=== PATIENT | female | born 1945 | race Caucasian/White ===

== ENCOUNTER 2018-01-06 14:45 | Emergency (ER) | payer MEDICARE, SELFPAY ==
[2018-01-06 14:47] VITALS: BP 159/83; PULSE 59; RESP 12; TEMP 36.6; O2SAT 96; BMI 35.4
--- NOTE | 2018-01-06 15:18 | RAD_ITS ---
STUDY: X-RAY - LEFT HUMERUS REASON FOR EXAM: Female, 72 years old. Left-sided arm pain after fall. TECHNIQUE: 2 view(s) of the humerus. COMPARISON: None. FINDINGS: There is diffuse demineralization of the humerus. There is no demonstrated fracture or osseous destructive process. There appears to be decreased acromiohumeral distance suggesting possible sequela of chronic rotator cuff tear. There is no demonstrated soft tissue abnormality. RAD/Humerus min 2 Views IMPRESSION: No radiographic evidence for acute fracture. Electronically Signed: Nuria Montgomery MD at 16:35 EDT , Service support ,
--- NOTE | 2018-01-06 15:18 | RAD_ITS ---
STUDY: X-RAY - LEFT WRIST REASON FOR EXAM: Female, 72 years old. Wrist fracture after fall. TECHNIQUE: 3 view(s) of the wrist were obtained. COMPARISON: Prior comparison studies are not available for review at this time. FINDINGS: There is a comminuted impacted intra-articular fracture the distal radius. The fracture extends into the radiocarpal joint. Fracture extends into the distal radioulnar joint and there is an ulnar plus variant. There is demineralization of the carpal bones. There is a geographic lucency within the scaphoid and lunate that may represent small cysts. Normal carpal articulations. There is degenerative arthrosis of the carpometacarpal articulation of the thumb. Normal second through fifth carpometacarpal articulations. There is deformity of the fifth metacarpal suggesting sequela old fracture. There is soft tissue swelling. RAD/Wrist min 3 Views IMPRESSION: Comminuted impacted intra-articular Colles' fracture of the distal radius. Electronically Signed: Nuria Montgomery MD at 16:32 EDT , Service support ,
--- NOTE | 2018-01-06 15:18 | CT_ITS ---
STUDY: CT FACIAL BONES WITHOUT CONTRAST REASON FOR EXAM: Female, 72 years old. Contusion of the left side of the face. RADIATION DOSAGE (If Supplied By Facility): CTDIvol = ( 29.38 ) mGy, DLP = ( 650.30 ) mGycm TECHNIQUE: The patient was scanned in a multi detector CT scanner. Sagittal and coronal images were reconstructed. Individualized dose optimization techniques were used for this CT. COMPARISON: None. FINDINGS: Normal soft tissue structures. Normal orbital carrington and orbital contents. Normal nasal bones and anterior nasal spine. Mandible has a normal appearance. There are degenerative changes at the temporomandibular joints with joint space narrowing and osteophyte formation. The carrington of the frontal sinuses, carrington of the maxillary sinuses, pterygoid plates and zygomatic arches are within normal limits. There is no demonstrated fracture. Appears be small amount of fluid in the right maxillary sinus. Paranasal sinuses are otherwise clear. CT/Sinus/Facial Bone IMPRESSION: No CT evidence of acute displaced fracture Electronically Signed: Nuria Montgomery MD at 17:09 EDT , Service support ,
--- NOTE | 2018-01-06 15:18 | CT_ITS ---
STUDY: CT BRAIN WITHOUT CONTRAST REASON FOR EXAM: Female, 72 years old. Recent fall. No loss of consciousness. RADIATION DOSAGE (If Supplied By Facility): CTDIvol = ( 44.99 ) mGy, DLP = ( 779.24 ) mGycm TECHNIQUE: Transaxial CT imaging of the brain was performed without administration of intravenous contrast material. Multiplanar reformations are submitted for interpretation. Individualized dose optimization techniques were used for this CT. COMPARISON: Prior comparable comparison studies are not available for review at this time. FINDINGS: Normal soft tissue structures. Normal calvarium. There is mild cerebral atrophy with widening of the extra-axial spaces and ventricular dilatation. Normal white matter tracts of the cerebral hemispheres. There are small calcifications of the basal ganglia which are seen in the aging brain as a normal variant. Normal brainstem. Normal cerebellum. There is no intracranial hemorrhage. There are no findings of an acute ischemic infarction. Normal visualized paranasal sinuses. CT/Brain/Head without Contrast IMPRESSION: 1. Chronic involutional changes of the brain. 2. No CT evidence of acute intracranial hemorrhage. Electronically Signed: Nuria Montgomery MD at 17:01 EDT , Service support ,
--- NOTE | 2018-01-06 15:18 | RAD_ITS ---
STUDY: X-RAY - RIGHT ANKLE REASON FOR EXAM: Female, 72 years old. Right-sided ankle pain after fall. TECHNIQUE: 3 view(s) of the ankle. COMPARISON: None. FINDINGS: Normal visualized distal tibia and fibula. Normal medial and lateral malleoli. Normal tibiotalar articulation and ankle mortise. There is a small plantar calcaneal spur. Joint spaces are within normal limits. There is no demonstrated fracture. The soft tissues are within normal limits. RAD/Ankle min 3 Views IMPRESSION: 1. Calcaneal spur. 2. No radiographic evidence of acute fracture. If there is still clinical concern for acute fracture, follow-up radiographs in 7-10 days maybe helpful in evaluating a healing radiographically occult fracture. Electronically Signed: Nuria Montgomery MD at 16:06 EDT , Service support ,
--- NOTE | 2018-01-06 15:20 | RAD_ITS ---
STUDY: X-RAY CHEST REASON FOR EXAM: Female, 72 years old. Chest pain after fall. TECHNIQUE: PA and lateral views of the chest. COMPARISON: None. FINDINGS: The lungs are clear and expanded. There is mild eventration of right hemidiaphragm. There is no demonstrated pleural abnormality. Normal size heart. Normal mediastinum and domonique. Normal visualized pulmonary arteries. Normal visualized aortic arch and descending thoracic aorta. There is demineralization of the osseous structures. Normal visualized ribs, clavicles, and shoulders. There is no demonstrated abnormality of the visualized soft tissue structures of the upper abdomen. RAD/Chest PA and Lateral IMPRESSION: No radiographic evidence of acute cardiopulmonary disease. Electronically Signed: Nuria Montgomery MD at 16:11 EDT , Service support ,
[2018-01-06] MEDS: morphine 8 MG/ML Syringe 6 MG IV (15:27)
[2018-01-06] MEDS: Ondansetron 4 MG/2 ML Vial IV (15:27)
[2018-01-06 16:52] VITALS: BP 125/63; PULSE 60; RESP 16; O2SAT 97
--- NOTE | 2018-01-06 17:38 | ED.DCSUM_ITS ---
- ER Visit Summary Date of Service: 01/06/18 Chief Complaint: Fall complaining of left wrist pain History of Present Illness: The patient is a 72 F who was trimming a portion at home that was along the wall above her driveway. She misstepped and fell over the wall about 3 feet landing awkwardly on her left wrist. Denies any LOC. She did hit the left side of her head and face. She denies being on any blood thinners. She also complains of mild left rib cage pain and left shoulder discomfort. She is right-hand dominant. Physical Examination: Well-appearing older female. Vital signs are stable afebrile. She does not look septic toxic. H EENT exam superficial abrasion contusion left side of her face. Pupils round reactive light. No dental injury. No scalp hematoma. C-spine nontender trachea midline. Normal range of motion her neck. Lungs clear to auscultation bilaterally. Chest wall nontender. Heart regular rate and rhythm no murmur. Abdomen soft nontender normal bowel sounds no peritoneal signs. Pelvic girdle intact. Back nontender. Extremities the right upper and right lower extremities are basically unremarkable. She complains of mild tenderness to her right ankle but there is no deformity. Foot is neurovascular intact. Left lower extremities unremarkable. Her left shoulder she complains of discomfort is no deformity. Elbow is nontender. The left wrist has an obvious deformity consistent with a fracture with a left hand neurovascular intact. There are superficial abrasions. Neurologic exam is normal. GCS is 15. Test Results: The brain shows no acute abnormality chronic changes. No bleed. Read by the radiologist reviewed by me. The facial bones no fracture again read by the radiologist reviewed by me. Chest x-ray unremarkable. Left humerus unremarkable. Left wrist distal radius comminuted displaced impacted fracture. Right ankle x-ray chronic changes with calcaneal spur but no fracture. Emergency Department Course and Treatment: Patient treated with IV morphine and Zofran. I did place a short arm AP splint to immobilize the left distal radius fracture. Patient tolerated procedure well. Treatment Plan: She will be followed up by orthopedics as an outpatient. I did speak to Dr. Iglesias about follow-up. Patient be discharged with 20 [place] for pain. Disposition: Discharge Impression: Acute fall over approximately a 3 4 wall. Closed head injury Left distal radius comminuted fracture Short arm AP splint by ER Right ankle sprain Left rib cage contusion This note was generated with [employer] dictation software. It may contain incorrect words, spelling, and punctuation that were not noted in review of the chart prior to signing ED Disposition - Plan for ED Patient: Chief Complaint: Fall Referrals: Hudson Oglesby Jr., MD [Primary Care Provider] -
--- NOTE | 2018-01-06 17:38 | ED.DEP ---
ED Disposition - Plan for ED Patient: Disposition: Home or Assisted Living Chief Complaint: Fall Instructions: ED Head Injury Closed, ED Fx Wrist General Prescriptions: Hydrocodone Bitart/Apap 5-325 [[place] 5MG-325MG] 1 - 2 tab PO Q4H PRN PRN #20 tab PRN Reason: Pain Additional Instructions: Ice and elevate left wrist. Keep splint dry and clean. Call and follow-up with of orthopedics on Monday. She will be to her office early next week. [place] for pain.
[2018-01-06 17:50] VITALS: BP 118/70; PULSE 80; RESP 14; O2SAT 99
== END 2018-01-06 18:07 | disposition home or self-care (01) ==
PROVIDERS: Emergency Provider Emergency Medicine; Family Provider Internal Medicine; PCP Internal Medicine
DX: S52.502A Unspecified fracture of the lower end of left radius, initial encounter for closed fracture (principal); S00.81XA Abrasion of other part of head, initial encounter; S00.83XA Contusion of other part of head, initial encounter; S93.401A Sprain of unspecified ligament of right ankle, initial encounter; S20.212A Contusion of left front wall of thorax, initial encounter; M25.512 Pain in left shoulder; R40.2410 Glasgow coma scale score 13-15, unspecified time; W17.89XA Other fall from one level to another, initial encounter; Y93.89 Activity, other specified; Y92.9 Unspecified place or not applicable; J44.9 Chronic obstructive pulmonary disease, unspecified; E11.9 Type 2 diabetes mellitus without complications; I10 Essential (primary) hypertension; Z90.710 Acquired absence of both cervix and uterus; Z79.84 Long term (current) use of oral hypoglycemic drugs; Z79.82 Long term (current) use of aspirin; Z79.899 Other long term (current) drug therapy
CPT/HCPCS: 29125; 70450; 70486; 71046; 73060; 73110; 73610; 96374; 96375; 99285; A4216; J2405

== ENCOUNTER → 2018-01-10 10:04 | Outpatient (CLI) | payer MEDICARE, SELFPAY ==
--- NOTE | 2018-01-10 10:31 | EKG12_ITS ---
Test Reason : PRE OP Blood Pressure : / mmHG Vent. Rate : 057 BPM Atrial Rate : 057 BPM P-R Int : 182 ms QRS Dur : 090 ms QT Int : 426 ms P-R-T Axes : 047 012 110 degrees QTc Int : 414 ms Sinus bradycardia Minimal voltage criteria for LVH, may be normal variant Nonspecific T wave abnormality Abnormal ECG When compared with ECG of 29-JUL-2013 15:18, Nonspecific T wave abnormality now evident in Inferior leads Nonspecific T wave abnormality now evident in Anterior leads Confirmed by KATHIA ROMERO ([id number]), editor city YURIY FISHER ([id number]) on 01/10/2018 11:42:56 AM Referred By: Anibal Garcia Confirmed By:KATHIA ROMERO
[2018-01-10 10:39] LABS: Hematocrit 40.7 % (37-47); Hemoglobin 13.1 g/dl (12.0-15.0); Mean Corp Hgb Conc 32.2 g/gl (32-36); Mean Corpuscular Hgb 28.6 pg (27.0-32.0); Mean Corpuscular Volume 88.9 fL (81-99); Mean Platelet Vol. 11.4 fl (6.2-12.0); Platelet Count 269 K/mm3 (150-450); RBC Distribution Width CV 13.4 % (11.6-14.6); RBC Distribution Width SD 43.2 fl (35.1-43.9); Red Blood Count 4.58 M/mm3 (4.2-5.4)
[2018-01-10 10:40] LABS: Scan Indicated on CBC? Y/N NO
[2018-01-10 10:58] LABS: Anion Gap 6 (5-15); BUN 17 mg/dL (7-18); BUN/Creat Ratio 20.7 RATIO (10-20); Calcium,Total 9.2 mg/dL (8.5-10.1); Chloride 104 mmol/L (98-107); Creatinine, Serum 0.82 mg/dL (0.55-1.02); EST Glomerular Filtration Rate 73 mL/min (>60); Est Glom Filt Rate - Afr Amer 88 mL/min (>60); Glucose 109 mg/dL (74-106); Potassium 4.1 mmol/L (3.5-5.1); Sodium Level 137 mmol/L (136-145)
== END ==
PROVIDERS: Family Provider Internal Medicine; PCP Internal Medicine; Visit Provider Physician Assistant Surgical
DX: Z01.818 Encounter for other preprocedural examination (principal); Z01.810 Encounter for preprocedural cardiovascular examination
CPT/HCPCS: 36415; 80048; 85027; 93005

== ENCOUNTER 2018-01-19 09:14 | Observation (INO) | payer MEDICARE, SELFPAY ==
[2018-01-19] VITALS (7 sets, daily range): BP systolic 109–150; BP diastolic 60–80; PULSE 60–76; RESP 14–18; TEMP 35.7–36.9; O2SAT 96–100; BMI 34.4; BMI 34.0; BMI 34.1
--- NOTE | 2018-01-19 09:29 | EKG12_ITS ---
Test Reason : GI BLEED Blood Pressure : / mmHG Vent. Rate : 062 BPM Atrial Rate : 062 BPM P-R Int : 170 ms QRS Dur : 090 ms QT Int : 442 ms P-R-T Axes : 044 010 152 degrees QTc Int : 448 ms Normal sinus rhythm T wave abnormality, consider anterolateral ischemia Abnormal ECG Confirmed by KATHIA ROMERO ([id number]), videotape editor YURIY FISHER ([id number]) on 01/29/2018 6:20:43 PM Referred By: Anibal Garcia Confirmed By:KATHIA ROMERO
--- NOTE | 2018-01-19 09:39 | ED.DCSUM_ITS ---
- ER Visit Summary Date of Service: 01/19/18 Chief Complaint: Severe abdominal pain yesterday and dark blood per rectum History of Present Illness: The patient is a 72 F who presents because of severe cramping generalized abdominal pain yesterday. She states the pain was associated with diaphoresis. She reports more she dark bloody stool. She has history of hemorrhoids and diverticulosis. She has not had a colonoscopy recently. She is on no anticoagulants or antiplatelet medicine. She does complain of lightheadedness today. She denies fever, chills night sweats. She denies chest pain or palpitations. She denies shortness of breath, cough, dyspnea on exertion. She reported nausea without vomiting. She denies dysuria, frequency, urgency or hematuria. She denies bruising easily or problems with bleeding. Physical Examination: Vital signs are normal. Head is atraumatic normocephalic. Pupils are equal round reactive. Extraocular muscles are intact. TMs are pearly white with landmarks noted. Nares patent with no drainage. Posterior pharynx without erythema or exudate. Uvula is midline. There is no dysphonia or dysphasia. Trachea is midline. There is no stridor with auscultation of the neck. Heart is regular without murmur, gallop or rub. S1 and S2 are normal. Lungs are clear to auscultation with good movement of air bilaterally. Abdomen is soft nontender slightly increased bowel sounds. Abdomen is not distended nor is there any tympana. Rectal exam is remarkable for hemorrhoids. Rectal exam was remarkable for dark blood/maroon colored material. Neuro exam is nonfocal. Test Results: EKG reveals a sinus rhythm rate of [address]-T wave changes. This is unremarkable. BMP revealed an elevated glucose of 130. BUN and creatinine are normal and BUN/creatinine ratio is normal. Coags are normal. Emergency Department Course and Treatment: Because patient elderly complains of orthostatic symptoms EKG was obtained. Blood work was obtained to evaluate her symptoms. Will perform endoscopy to determine if this is hemorrhoidal bleeding versus diverticular bleeding. Suspect the latter. Treatment Plan: Rigid sigmoidoscopy. Upon entering the rectum blood was noted. Blood was noted past 14 cm. In light of this finding suspect lower GI bleed secondary to diverticulosis. Disposition: Dr. Avila has been paged for surgical consultation and will page hospitalist for admission for evaluation of lower GI bleed. Presently patient is hemodynamically stable and her hemoglobin is normal. Patient to be admitted to hospitalist service with consultation to Dr. Eleazar Avila Impression: 1. Lower GI bleed with history of diverticulosis 2. History of type 2 diabetes 3. History of hypertension 4. History of hypercholesterolemia This note was generated with [employer] dictation software. It may contain incorrect words, spelling, and punctuation that were not noted in review of the chart prior to signing ED Disposition - Plan for ED Patient: Chief Complaint: GI Bleed Referrals: Hudson Oglesby Jr., MD [Primary Care Provider] -
[2018-01-19 09:56] LABS: Absolute Lymphocyte Count 2.17 X10^3/ul (0.83-4.51); Absolute Neutrophil Count 7.3 X10^3/uL (2.0-7.7); Basophil# 0.02 X10^3/uL; Basophil% 0.2 % (0-1); Eosinophil# 0.41 X10^3/uL; Eosinophils% 3.8 % (0-5); Hematocrit 40.8 % (37-47); Hemoglobin 13.3 g/dl (12.0-15.0); Lymphocyte # 2.17 X10^3/ul (4.0); Lymphocyte % 20.1 % (19-41); Mean Corp Hgb Conc 32.6 g/gl (32-36); Mean Corpuscular Hgb 28.1 pg (27.0-32.0); Mean Corpuscular Volume 86.1 fL (81-99); Mean Platelet Vol. 9.5 fl (6.2-12.0); Monocyte# 0.86 X10^3/uL; Neutrophil # 7.31 X10^3/uL (2.7-7.7); Neutrophil % 67.7 % (47-70); Platelet Count 300 K/mm3 (150-450); RBC Distribution Width CV 13.3 % (11.6-14.6); RBC Distribution Width SD 42.1 fl (35.1-43.9); Red Blood Count 4.74 M/mm3 (4.2-5.4); White Blood Count 10.8 K/mm3 (4.4-11.0)
[2018-01-19 10:00] LABS: POSITIVE COUNT NO; POSITIVE DIFFERENTIAL NO; POSITIVE MORPHOLOGY NO
[2018-01-19 10:06] LABS: Anion Gap 7 (5-15); BUN 12 mg/dL (7-18); BUN/Creat Ratio 13.3 RATIO (10-20); Calcium,Total 8.8 mg/dL (8.5-10.1); Chloride 105 mmol/L (98-107); EST Glomerular Filtration Rate 65 mL/min (>60); Est Glom Filt Rate - Afr Amer 79 mL/min (>60); Estimated Creatinine Clearance 49.51 ml/min; Glucose 130 mg/dL (74-106); Potassium 4.1 mmol/L (3.5-5.1); Sodium Level 138 mmol/L (136-145)
[2018-01-19 10:09] LABS: Partial Thromboplast Time 29.5 Seconds (24.1-36.2)
--- NOTE | 2018-01-19 10:34 | NURSING ---
DR SCHAEFER PAGED
--- NOTE | 2018-01-19 10:46 | NURSING ---
DR JUAN ROBLES
--- NOTE | 2018-01-19 10:46 | NURSING ---
MED SURG LOWER GI BLEED ROBLES/ JUAN
--- NOTE | 2018-01-19 11:23 | CON.PCM_ITS ---
Problem List (1) GI bleeding Status: Acute Qualifiers: GI bleed type/associated pathology: anorectal hemorrhage Qualified Code(s) : K62.5 - Hemorrhage of anus and rectum Reason for Consult Date of Consultation: 01/19/18 History of Present Illness: The patient is a 72 F who presents because of severe cramping generalized abdominal pain yesterday. She states the pain was associated with diaphoresis. She reports more she dark bloody stool. She has history of hemorrhoids and diverticulosis. She has not had a colonoscopy recently. She is on no anticoagulants or antiplatelet medicine. She does complain of lightheadedness today. She denies fever, chills night sweats. She denies chest pain or palpitations. She denies shortness of breath, cough, dyspnea on exertion. She reported nausea without vomiting. She denies dysuria, frequency, urgency or hematuria. She denies bruising easily or problems with bleeding. While in the emergency department she underwent a rigid sigmoidoscopy up to 14 cm. The only thing that was seen was bloody mucousy stool. She has had 2 colonoscopies in the past [address] Jason and then she thinks another one more recently done in [place] she presented with similar episodes of rectal bleeding. She was told that she has more likely diverticulosis which caused the bleeding back then. Past Medical History Allergies Penicillins [PCN] Allergy (Verified 01/19/18 09:18) Anaphylaxis Home Medications: Ambulatory Orders Medication Instructions Recorded ALPRAZolam [Xanax] 1 mg PO BID PRN 01/06/18 Amiodarone HCl [Amiodarone HCl] 200 mg PO DAILY 01/06/18 Amlodipine [Norvasc] 5 mg PO DAILY 01/06/18 Aspirin 81 mg PO DAILY 01/06/18 Metformin HCl [Glucophage] 500 mg PO BID 01/06/18 Metoprolol Succinate [Toprol Xl] 100 mg PO BID 01/06/18 Milnacipran HCl [Savella] 50 mg PO BID 01/06/18 Multivit-Min/FA/Vit K/Lycopene 1 each PO DAILY 01/19/18 [[facility] Mens 50 Plus Advanced Tab] Oxycodone [Oxyir] 5 - 10 mg PO Q6H PRN PRN 01/19/18 Surgical History: cholecystectomy, - - Patient has had colonoscopies in the past Smoking Status: Never smoker - *Family History Maternal History Items: No pertinent history Review of Systems Constitutional: Denies: Chills, Fever, Weight Change HEENT: Denies: Dysphasia, Ear Pain, Eye Pain, Head Aches, Hearing Changes, Sore Throat Cardiovascular: Denies: Chest Pain, Chest Pressure, Chest Tightness, Palpitations Respiratory: Denies: Cough, Hemoptysis, Shortness of breath at rest, Shortness of breath upon exertion, Wheezing Gastrointestinal: Reports: Abdominal Pain, Hematochezia - She is complaining of crampy abdominal pain and has had numerous mucousy bloody bowel movements over the night, Nausea. Denies: Vomiting Patient Problems: Active and Suspected Problems GI bleeding (Acute) - Physical Exam General: Alert, Oriented x3 Neck: Supple, No JVD Lungs: Clear to auscultation Cardiovascular: Regular rate, Regular Rhythm, No murmurs Abdomen: Bowel Sounds Present, Soft, Non Tender, Non-Distended Vital Signs Temp Pulse Resp BP Pulse Ox 96.2 F L 63 14 150/80 H 98 01/19/18 09:15 01/19/18 10:58 01/19/18 10:58 01/19/18 10:58 01/19/18 10:58 Assessment/Plan All Active Problems GI bleeding (Acute) My plan is to have her do a bowel prep today and then sometime hopefully early tomorrow do a colonoscopy on her. Risk benefits have been discussed in detail with the patient to include bleeding injury to the colon which could possibly require further surgery.
[2018-01-19 12:39] LABS: Hematocrit 39.2 % (37-47); Hemoglobin 12.8 g/dl (12.0-15.0)
--- NOTE | 2018-01-19 13:31 | PCM.HP.STD ---
Problem List (1) GI bleeding Status: Acute Qualifiers: GI bleed type/associated pathology: anorectal hemorrhage Qualified Code(s): K62.5 - Hemorrhage of anus and rectum (2) Diverticulosis Status: Chronic (3) HTN (hypertension) Status: Chronic (4) Diabetes Status: Chronic Qualifiers: Diabetes mellitus type: type 2 (5) HLD (hyperlipidemia) Status: Chronic (6) Anxiety Status: Chronic (7) Fibromyalgia Status: Chronic (8) Wrist fracture Status: Chronic (9) Depression Status: Chronic History of Present Illness Date of Admission: 01/19/18 Chief Complaint: BRBPR The patient is a 72 year old F with a hx of bleeding diverticulitis, DMt2, HTN, HLD, fibro, anx, dep, who presents to the ER with cc of BRBPR. She initially noted diffuse, severe, cramping abdominal pain yesterday afternoon. Today she had multiple small bowel movements each time with relief of the cramping before it restarted. During these she would experience the urge to defecate strongly, then bear down heavily with cramping, and become lightheaded, nauseous (no vomiting) and diaphoretic. After the 4th episode she began bleeding from her rectum. She felt like she was moving her bowels, but gobs of blood would come out, which were bright red and with mucous, that would sit in the bottom of the toilet in clumps. She denies fever or chills. In the ER she had a normal Hgb, and had a rigid sigmoidoscopy with blood and mucus through 14 cm. Currently she has some crampy pain radiating into the back. She has had bleeding in the past and was told it was from diverticulosis. She has had multiple colonoscopies, she believes the last was 3-4 years ago, she cannot specifically remember who did it, but thinks it was in [place]. [] Past Medical History Past Medical History (Chronic Problems): Chronic Problems Diverticulosis (Chronic) HTN (hypertension) (Chronic) Diabetes (Chronic) HLD (hyperlipidemia) (Chronic) Anxiety (Chronic) Fibromyalgia (Chronic) Wrist fracture (Chronic) Depression (Chronic) Allergies Penicillins [PCN] Allergy (Verified 01/19/18 09:18) Anaphylaxis Home Medications: Ambulatory Orders Medication Instructions Recorded ALPRAZolam [Xanax] 1 mg PO BID PRN 01/06/18 Amiodarone HCl [Amiodarone HCl] 200 mg PO DAILY 01/06/18 Amlodipine [Norvasc] 5 mg PO DAILY 01/06/18 Aspirin 81 mg PO DAILY 01/06/18 Metformin HCl [Glucophage] 500 mg PO BID 01/06/18 Metoprolol Succinate [Toprol Xl] 100 mg PO BID 01/06/18 Milnacipran HCl [Savella] 50 mg PO BID 01/06/18 Multivit-Min/FA/Vit K/Lycopene 1 each PO DAILY 01/19/18 [[facility] Mens 50 Plus Advanced Tab] Oxycodone [Oxyir] 5 - 10 mg PO Q6H PRN PRN 01/19/18 Surgical History: cholecystectomy, - - Patient has had colonoscopies in the past Psychiatric History: Anxiety, Depression 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 Review of Systems Constitutional: Denies: Chills, Fever, Weight Change HEENT: Denies: Head Aches, Sinus Congestion, Sinus Drainage Cardiovascular: Denies: Chest Pain, Palpitations Respiratory: Denies: Cough, Shortness of breath at rest, Sputum production Gastrointestinal: Reports: Abdominal Pain, Hematochezia, Nausea. Denies: Vomiting Genitourinary: Denies: Dysuria Musculoskeletal: Denies: Joint Pain, Joint Tenderness Skin: Denies: Rash, Wounds Neurological: Denies: Numbness, Tingling, Focal weakness Psychiatric: Reports: Anxiety, Depression. Denies: Homicidal Ideations, Suicidal Ideations Hematologic/ Lymphatic: Denies: Easy Bruising, Easy Bleeding VTE Information - Inpt Only VTE Present on Admission: No VTE Mechan Device Prophylaxis: SCD's VTE Pharm Prophylaxis ordered?: No Reason prophylaxis not ordered:: Medical Contraindication Patient Problems: Active and Suspected Problems GI bleeding (Acute) - Physical Exam General: Alert, Oriented x3, Cooperative HEENT: Atraumatic, PERRLA, EOMI, Normocephalic Neck: Supple, No JVD, Negative Carotid Bruits Lungs: Clear to auscultation, Normal air movement Cardiovascular: Regular rate, No murmurs Abdomen: Bowel Sounds Present, Soft, Non Tender Extremities: No edema, Capillary Refill Less than 3 Seconds Skin: No rashes, No breakdown Musculoskeletal: No Tenderness to Palpation of Joints or Extremities Neurological: Cranial nerves II-XII grossly intact Psych/Mental Status: Normal Affect, Appropriate, Alert and oriented to time, place, person, mood and affect Vital Signs Temp Pulse Resp BP Pulse Ox 98.1 F 60 16 135/71 H 100 01/19/18 11:36 01/19/18 11:36 01/19/18 11:36 01/19/18 11:36 01/19/18 11:36 Oxygen Delivery Method Room Air Weight: 90.038 kg Body Mass Index (BMI) 34.0 Laboratory Tests Past 24 Hrs 01/19/18 01/19/18 11:44 12:22 Hgb 12.8 Hct 39.2 Blood Type O NEGATIVE Antibody Screen NEGATIVE Assessment/Plan All Active Problems GI bleeding (Acute) 1. Rectal bleeding with severe cramping abdominal pain - prior episodes 2/2 bleeding diverticula. Repeat H/H q 6 h. Check T/S. Pepcid bid. Clear liquids. IV fluids. Surgery following. CT abdomen pending. no fever or white count. sigmoidoscopy done in her with blood and mucus. Surgery following. Planning for scope tomorrow. Last colonoscopy 3-4 years ago in [place]. 2. DMt2 - hold orals, SSI if needed. 3. HTN - initially elevated, improving. 4. HLD - intolerant of statins 5. Fibromyalgia/Anx/Dep - home meds. DVT ppx: SCDs DC planning: home when stable, do not anticipate home going needs This patient was seen by Nicho Galarza PA-C under the supervision of Doctor Pereira.
--- NOTE | 2018-01-19 13:34 | CT_ITS ---
STUDY: CT ABDOMEN AND PELVIS WITHOUT CONTRAST REASON FOR EXAM: Female, 72 years old. Abdominal pain. Rectal bleeding. RADIATION DOSAGE (If Supplied By Facility): CTDIvol = ( 16.46 ) mGy, DLP = ( 884.22 ) mGycm TECHNIQUE: Transaxial images were obtained from the dome of the diaphragm to the symphysis pubis without oral contrast, and without intravenous contrast. Sagittal and coronal images were reconstructed. Individualized dose optimization techniques were used for this CT. COMPARISON: None. FINDINGS: Minimal degree of increased linear markings at the left lung base suggestive of linear atelectasis. The visualized portions of the heart are within normal limits. Scattered hypodense nodules in the liver most likely reflecting cysts. The largest measures 2.2 cm x 2.3 cm. There are multiple small gallstones. Normal spleen. Normal pancreas. Normal bilateral adrenal glands. Tiny nonobstructive right intrarenal calculi. Normal left kidney. There is a small hiatal hernia. Normal small intestine. Circumferential wall thickening of the left hemicolon with increased markings in the surrounding peritoneal fat suggestive of colitis. Ischemic colitis should be ruled out. The appendix is visualized and appears normal. There is diffuse atherosclerotic calcification of the abdominal aorta, without a demonstrated aneurysm. Normal inferior vena cava. Normal retroperitoneum. Normal urinary bladder. There is absence of the uterus consistent with a prior hysterectomy. There is evidence of prior ventral hernia repair with a mesh. There are mild degenerative changes of the visualized lumbar spine. CT/Abdomen/Pelvis without Cont IMPRESSION: Findings in keeping with a colitis of the left hemicolon. Ischemic colitis should be ruled out. Hypodensities scattered throughout the liver. These most likely represent hepatic cysts. Electronically Signed: Dung Rowe MD at 15:28 EDT Tel [phone], Service support ,
--- NOTE | 2018-01-19 13:41 | HP.PCM_ITS ---
Problem List (1) GI bleeding Status: Acute Qualifiers: GI bleed type/associated pathology: anorectal hemorrhage Qualified Code(s) : K62.5 - Hemorrhage of anus and rectum (2) Diverticulosis Status: Chronic (3) HTN (hypertension) Status: Chronic (4) Diabetes Status: Chronic Qualifiers: Diabetes mellitus type: type 2 (5) HLD (hyperlipidemia) Status: Chronic (6) Anxiety Status: Chronic (7) Fibromyalgia Status: Chronic (8) Wrist fracture Status: Chronic (9) Depression Status: Chronic History of Present Illness Date of Admission: 01/19/18 Chief Complaint: BRBPR The patient is a 72 year old F with a hx of bleeding diverticulitis, DMt2, HTN, HLD, fibro, anx, dep, who presents to the ER with cc of BRBPR. She initially noted diffuse, severe, cramping abdominal pain yesterday afternoon. Today she had multiple small bowel movements each time with relief of the cramping before it restarted. During these she would experience the urge to defecate strongly, then bear down heavily with cramping, and become lightheaded, nauseous (no vomiting) and diaphoretic. After the 4th episode she began bleeding from her rectum. She felt like she was moving her bowels, but gobs of blood would come out, which were bright red and with mucous, that would sit in the bottom of the toilet in clumps. She denies fever or chills. In the ER she had a normal Hgb, and had a rigid sigmoidoscopy with blood and mucus through 14 cm. Currently she has some crampy pain radiating into the back. She has had bleeding in the past and was told it was from diverticulosis. She has had multiple colonoscopies, she believes the last was 3-4 years ago, she cannot specifically remember [place] [facility], but [place] [facility] [place] [] Past Medical History Past Medical History (Chronic Problems): Chronic Problems Diverticulosis (Chronic) HTN (hypertension) (Chronic) Diabetes (Chronic) HLD (hyperlipidemia) (Chronic) Anxiety (Chronic) Fibromyalgia (Chronic) Wrist fracture (Chronic) Depression (Chronic) Allergies Penicillins [PCN] Allergy (Verified 01/19/18 09:18) Anaphylaxis Home Medications: Ambulatory Orders Medication Instructions Recorded ALPRAZolam [Xanax] 1 mg PO BID PRN 01/06/18 Amiodarone HCl [Amiodarone HCl] 200 mg PO DAILY 01/06/18 Amlodipine [Norvasc] 5 mg PO DAILY 01/06/18 Aspirin 81 mg PO DAILY 01/06/18 Metformin HCl [Glucophage] 500 mg PO BID 01/06/18 Metoprolol Succinate [Toprol Xl] 100 mg PO BID 01/06/18 Milnacipran HCl [Savella] 50 mg PO BID 01/06/18 Multivit-Min/FA/Vit K/Lycopene 1 each PO DAILY 01/19/18 [[facility] Mens 50 Plus Advanced Tab] Oxycodone [Oxyir] 5 - 10 mg PO Q6H PRN PRN 01/19/18 Surgical History: cholecystectomy, - - Patient has had colonoscopies in the past Psychiatric History: Anxiety, Depression [employer] History: No pertinent [employer]OMOT[employer]ER history Lives: Spouse/ Significant Other Smoking Status: Former smoker Tobacco Use: Non-smoker Alcohol: Rare Drugs: None - *Family History Maternal History Items: Diabetes, Dementia, Heart Disease - chf Paternal History Items: Cancer - stomach? Review of Systems Constitutional: Denies: Chills, Fever, Weight Change HEENT: Denies: Head Aches, Sinus Congestion, Sinus Drainage Cardiovascular: Denies: Chest Pain, Palpitations Respiratory: Denies: Cough, Shortness of breath at rest, Sputum production Gastrointestinal: Reports: Abdominal Pain, Hematochezia, Nausea. Denies: Vomiting Genitourinary: Denies: Dysuria Musculoskeletal: Denies: Joint Pain, Joint Tenderness Skin: Denies: Rash, Wounds Neurological: Denies: Numbness, Tingling, Focal weakness Psychiatric: Reports: Anxiety, Depression. Denies: Homicidal Ideations, Suicidal Ideations Hematologic/ Lymphatic: Denies: Easy Bruising, Easy Bleeding VTE Information - Inpt Only VTE Present on Admission: No VTE Mechan Device Prophylaxis: SCD's VTE Pharm Prophylaxis ordered?: No Reason prophylaxis not ordered:: Medical Contraindication Patient Problems: Active and Suspected Problems GI bleeding (Acute) - Physical Exam General: Alert, Oriented x3, Cooperative HEENT: Atraumatic, PERRLA, EOMI, Normocephalic Neck: Supple, No JVD, Negative Carotid Bruits Lungs: Clear to auscultation, Normal air movement Cardiovascular: Regular rate, No murmurs Abdomen: Bowel Sounds Present, Soft, Non Tender Extremities: No edema, Capillary Refill Less than 3 Seconds Skin: No rashes, No breakdown Musculoskeletal: No Tenderness to Palpation of Joints or Extremities Neurological: Cranial nerves II-XII grossly intact Psych/Mental Status: Normal Affect, Appropriate, Alert and oriented to time, place, person, mood and affect Vital Signs Temp Pulse Resp BP Pulse Ox 98.1 F 60 16 135/71 H 100 01/19/18 11:36 01/19/18 11:36 01/19/18 11:36 01/19/18 11:36 01/19/18 11:36 Oxygen Delivery Method Room Air Weight: 90.038 kg Body Mass Index (BMI) 34.0 Laboratory Tests Past 24 Hrs 01/19/18 01/19/18 11:44 12:22 Hgb 12.8 Hct 39.2 Blood Type O NEGATIVE Antibody Screen NEGATIVE Assessment/Plan All Active Problems GI bleeding (Acute) 1. Rectal bleeding with severe cramping abdominal pain - prior episodes 2/2 bleeding diverticula. Repeat H/H q 6 h. Check T/S. Pepcid bid. Clear liquids. IV fluids. Surgery following. CT abdomen pending. no fever or white count. sigmoidoscopy done in her with blood and mucus. Surgery following. Planning for scope tomorrow. Last colonoscopy 3[place]4 [place] ago in [place]. 2. DMt2 - hold orals, SSI if needed. 3. HTN - initially elevated, improving. 4. HLD - intolerant of statins 5. Fibromyalgia/Anx/Dep - home meds. DVT ppx: SCDs DC planning: home when stable, do not anticipate home going needs This patient was seen by Nicho Galarza PA-C under the supervision of Doctor Pereira.
[2018-01-19] MEDS: 0.9% Normal Saline 1,000 ML 100 ML IV (15:15)
[2018-01-19] MEDS: 0.9% NaCl Peripheral Flush Adult/Peds IV ×3 (15:15→17:48)
[2018-01-19] MEDS: Famotidine 20 MG Tablet PO ×2 (15:19→22:22)
[2018-01-19] MEDS: Metoprolol(XL)Succ 100 MG Tablet PO (15:19)
[2018-01-19] MEDS: Amiodarone 200 MG Tablet PO (15:19)
[2018-01-19] MEDS: amLODIPine 5 MG Tablet PO (15:20)
[2018-01-19 15:40] LABS: Bedside Glucose 92 mg/dL (70-110)
[2018-01-19] MEDS: Electrolyte Solution/Peg's 4000 ML PO (16:50)
[2018-01-19 17:32] LABS: Hematocrit 40.6 % (37-47); Hemoglobin 13.1 g/dl (12.0-15.0)
--- NOTE | 2018-01-19 17:45 | NURSING ---
Jayson RN reported to me that pt had vomited a large amount of the go-lytely into trash can. pt was medicated with zofran and encouraged to slow down drinking the bowel prep. pt verbalized understanding. still having bright red bloody stool.
[2018-01-19] MEDS: Ondansetron 4 MG/2 ML Vial IV (17:48)
[2018-01-19] MEDS: oxyCODONE 5 MG Tablet PO (20:05)
[2018-01-19] MEDS: ALPRAZolam 0.5 MG Tablet PO (22:29)
[2018-01-19 22:31] LABS: Bedside Glucose 134 mg/dL (70-110)
[2018-01-19 23:43] LABS: Hemoglobin 11.4 g/dl (12.0-15.0)
[2018-01-20] VITALS (14 sets, daily range): BP systolic 101–158; BP diastolic 47–75; PULSE 58–71; RESP 16–18; TEMP 36.5–36.8; O2SAT 94–100; BMI 33.9
--- NOTE | 2018-01-20 | COLBX_PTH ---
PATIENT: SANDI RAMIREZ LOC: MS3 U#:[id number] AGE/SX: 72/F ROOM: ME321 RE01/19/[address]: Dr. Anh Ramirez MD : [id number] BED: 1 DIS: 01/21/2018 SPEC #: [id number] RECD: 01/20/18 08:49 STATUS: DIPIKA REQ #: [id number] GRAY: 01/20/18 00:[address]: Abdullahi Avila DEPT: SURGICAL PATHOLOGY RECD BY: Lewis Ricci ENTERED: 01/25/18 11:10 SP TYPE: COLON BX OTHR DR: MD Dr. Vanessa Horton DO Dr. Daniel Peabody, MD Dr. Richard Jones Jr., MD Tissues: Descending colon Procedures: Surgery Specimen Level IV Comments: @ Ordering doctor for SUIV edited from to @ by MARLENA at 01/25/18 1332 @ Submitting doctor edited from to @ by MARLENA at 01/25/18 1332 HEADER OPERATION: Colonoscopy PRE-OP DIAGNOSIS: Hemorrhage of rectum and anus TISSUE SUBMITTED: Descending colon biopsy MICROSCOPIC DIAGNOSIS Descending colon, biopsy: Ischemic colitis. AM:camryn 01/27/18 MICROSCOPIC DESCRIPTION Slides are reviewed. GROSS DESCRIPTION Received in fixative is one container labeled with the patient's name and designated descending colon biopsy. The specimen consists of multiple irregular fragments of light perez soft tissue that in aggregate measure 0.5 x 0.3 x 0.5 cm. The specimen is totally submitted in one cassette. / SJ:camryn 01/22/18 TC:3 CPT: 17679
[2018-01-20] MEDS: 0.9% Normal Saline 1,000 ML 100 ML IV (01:45)
[2018-01-20 06:48] LABS: Absolute Lymphocyte Count 2.69 X10^3/ul (0.83-4.51); Absolute Neutrophil Count 5.5 X10^3/uL (2.0-7.7); Basophil# 0.01 X10^3/uL; Basophil% 0.1 % (0-1); Eosinophil# 0.48 X10^3/uL; Eosinophils% 5.1 % (0-5); Hematocrit 35.4 % (37-47); Hemoglobin 11.3 g/dl (12.0-15.0); Lymphocyte # 2.69 X10^3/ul (4.0); Lymphocyte % 28.5 % (19-41); Mean Corp Hgb Conc 31.9 g/gl (32-36); Mean Corpuscular Hgb 27.6 pg (27.0-32.0); Mean Corpuscular Volume 86.6 fL (81-99); Mean Platelet Vol. 9.8 fl (6.2-12.0); Monocyte% 8.5 % (0-10); Neutrophil # 5.46 X10^3/uL (2.7-7.7); Neutrophil % 57.7 % (47-70); Platelet Count 258 K/mm3 (150-450); RBC Distribution Width CV 13.6 % (11.6-14.6); RBC Distribution Width SD 42.9 fl (35.1-43.9); Red Blood Count 4.09 M/mm3 (4.2-5.4); White Blood Count 9.5 K/mm3 (4.4-11.0)
[2018-01-20 06:56] LABS: POSITIVE COUNT NO; POSITIVE DIFFERENTIAL NO; POSITIVE MORPHOLOGY NO
[2018-01-20 06:56] LABS: Bedside Glucose 106 mg/dL (70-110)
[2018-01-20] MEDS: Metoprolol(XL)Succ 100 MG Tablet PO ×2 (07:33→21:37)
--- NOTE | 2018-01-20 08:18 | OP.PCM_ITS ---
Problem List (1) GI bleeding Status: Acute Qualifiers: GI bleed type/associated pathology: anorectal hemorrhage Qualified Code(s) : K62.5 - Hemorrhage of anus and rectum Report of Operation Date of Procedure: 01/20/18 Pre-Operative Diagnosis: k62.5 GI bleed Post-Operative Diagnosis: Same Surgery/Procedure Performed:: Colonoscopy with biopsy Description of Surgical Findings:: Area of ischemic colitis of the descending colon approximately 10-15 cm long circumferential in nature Type of Anesthesia:: MAC Description of Procedure: Patient was brought into the endoscopy suite. Placed in the left lateral decubitus position. Graded anesthesia was given. Colonoscope was inserted into the rectum and directed through the sigmoid colon, descending colon, transverse colon, ascending colon, to the cecum. Operative findings: 1. Cecum: Normal appearance no mass lesions normal ileocecal valve. 2. Ascending colon: Normal appearance no mass lesions. 3. Transverse colon: Normal appearance no mass lesions. 4. Descending colon: Rather long segment of what appeared to be ischemic colitis 2 biopsies of this were obtained. It seems circumferential in nature there is no active bleeding identified. And there were no segments that actually look black as if there was dying mucosa. 5. Sigmoid colon: Normal appearance no mass lesions. 6. Rectum: Normal appearance no mass lesions. Patient has an obvious area of ischemic colitis of the descending colon. She will need to have another colonoscopy in 10 years. - Admit VTE Documentation VTE Present on Admission: No VTE Mechan Device Prophylaxis: None VTE Pharm Prophylaxis ordered?: No Reason prophylaxis not ordered:: Treatment Not Indicated
--- NOTE | 2018-01-20 08:22 | PCM.PN.HOSP ---
Patient Problems: Active and Suspected Problems GI bleeding (Acute) Vitals/I&O's: Vital Signs Temp Pulse Resp BP Pulse Ox 97.8 F 61 16 102/48 L 96 01/20/18 08:18 01/20/18 08:18 01/20/18 08:18 01/20/18 08:18 01/20/18 08:18 Oxygen Delivery Method Room Air Weight: 90.038 kg Body Mass Index (BMI) 33.9 Intake and Output for Last 24 Hours 01/18/18 01/19/18 01/20/18 23:59 23:59 23:59 Intake Total 3778 / 3778 683 / 683 Output Total 1999 Balance 1778 / 1778 683 / 683 Laboratory Results 01/19/18 11:44: Blood Type O NEGATIVE, Antibody Screen NEGATIVE 01/19/18 12:22: Hgb 12.8, Hct 39.2 01/19/18 15:26: POC Glucose 92 01/19/18 17:16: Hgb 13.1, Hct 40.6 01/19/18 22:16: POC Glucose 134 H 01/19/18 23:28: Hgb 11.4 L, Hct 35.0 L 01/20/18 06:10: WBC 9.5, RBC 4.09 L, Hgb 11.3 L, Hct 35.4 L, MCV 86.6, MCH 27.6, MCHC 31.9 L, RDW 13.6, RDW Differential 42.9, Plt Count 258, MPV 9.8, Immature Gran % (Auto) 0.100, Neut % (Auto) 57.7, Lymph % (Auto) 28.5, [place] % (Auto) 8.5, Eos % (Auto) 5.1 H, Baso % (Auto) 0.1, Absolute Neuts (auto) 5.5, Absolute Lymphs (auto) 2.69, Total Counted Not Reportable 01/20/18 06:32: POC Glucose 106 Current Medications Alprazolam (Xanax) 0.5 mg PO BID PRN PRN PRN Reason: ANXIETY Last Admin: 01/19/18 22:29 Dose: 0.5 mg Amiodarone HCl (Cordarone) 200 mg PO DAILY NINO Last Admin: 01/19/18 15:19 Dose: 200 mg Amlodipine Besylate (Norvasc) 5 mg PO DAILY [facility] Last Admin: 01/19/18 15:20 Dose: 5 mg Dextrose (D50w Syringe) 0 gm IV X1 PRN; Protocol PRN Reason: Hypoglycemia Duloxetine HCl (Cymbalta) 30 mg PO DAILY [facility] Famotidine (Pepcid) 20 mg PO BID [facility] Last Admin: 01/19/18 22:22 Dose: 20 mg Glucagon () 1 mg IM .X1 PRN PRN Reason: Hypoglycemia Sodium Chloride () 1,000 mls @ 100 mls/hr IV .Q10H [facility] Last Admin: 01/20/18 01:45 Dose: 100 mls/hr Insulin Human Lispro (Humalog Kwikpen (Bkc)) 0 unit SC ACHS NINO PRN Reason: Protocol Last Admin: 01/20/18 06:37 Dose: Not Given Metoprolol Succinate (Toprol Xl (Beta Dev)) 100 mg PO BID [facility] Last Admin: 01/20/18 07:33 Dose: 100 mg Morphine Sulfate () 1 mg IV Q3H PRN PRN PRN Reason: SEVERE PAIN (6-10/10) Multivitamins/Minerals (Multivitamin With Minerals) 1 tablet PO DAILY@0800 [facility] Nutritional Formula (Lactose Free) (Ensure Clear) 120 ml PO 4X/DAY [facility] Last Admin: 01/19/18 22:22 Dose: 120 ml Ondansetron HCl (Zofran) 4 mg IV Q6H PRN PRN PRN Reason: NAUSEA Last Admin: 01/19/18 17:48 Dose: 4 mg Oxycodone HCl (Oxyir) 5 mg PO Q6H PRN PRN PRN Reason: PAIN Last Admin: 01/19/18 20:05 Dose: 5 mg Sodium Chloride () 5 - 30 ml IV UD PRN PRN Reason: SALINE FLUSH Last Admin: 01/19/18 17:48 Dose: 10 ml Medical Necessity - Tobacco Use Smoking Status: Former smoker Tobacco Use: Non-smoker Assessment/Plan All Active Problems GI bleeding (Acute)
[2018-01-20] MEDS: Multivitamins,Ther W-Minerals Tablet 1 TABLET PO (09:34)
[2018-01-20] MEDS: Amiodarone 200 MG Tablet PO (09:34)
[2018-01-20] MEDS: Famotidine 20 MG Tablet PO ×2 (09:34→21:37)
[2018-01-20] MEDS: amLODIPine 5 MG Tablet PO (09:34)
[2018-01-20] MEDS: DULoxetine Hcl 30 MG Capsule PO (09:34)
[2018-01-20 11:51] LABS: Bedside Glucose 192 mg/dL (70-110)
--- NOTE | 2018-01-20 11:58 | NURSING ---
Pt upset that Dr. Avila told her spouse that she was not having pain when she is having pain. Dr. Avila was paged and updated and pt was notified that he does acknowledge she is painful from the flare up of her ischemic colitis. Pt also had concerns that she has constipation issues. Dr. Weeksill to address.
[2018-01-20] MEDS: oxyCODONE 5 MG Tablet PO (13:39)
[2018-01-20 16:55] LABS: Bedside Glucose 102 mg/dL (70-110)
--- NOTE | 2018-01-20 17:35 | PCM.PN.HOSP ---
Patient Problems: Active and Suspected Problems GI bleeding (Acute) Subjective: Patient was seen and examined, no new complaints. Had colonoscopy done today that showed ischemic colitis. No bleeding seen by rectum. Denies any dizziness or chest pain or shortness of breath. Feels well. Vitals/I&O's: Vital Signs Temp Pulse Resp BP Pulse Ox 98.1 F 61 18 126/73 H 100 01/20/18 16:02 01/20/18 16:02 01/20/18 16:02 01/20/18 16:02 01/20/18 16:02 Oxygen Delivery Method Room Air Weight: 90.038 kg Body Mass Index (BMI) 33.9 Intake and Output for Last 24 Hours 01/18/18 01/19/18 01/20/18 23:59 23:59 23:59 Intake Total 3778 / 3778 1733 / 1733 Output Total 1999 Balance 1778 / 1778 1733 / 1733 General: Alert, Oriented x3, Cooperative, No apparent distress HEENT: Atraumatic, PERRLA, EOMI, Normocephalic Oral: Moist Mucosa Neck: Supple Lungs: Clear to auscultation, Normal air movement Cardiovascular: Regular rate, Regular Rhythm, Normal S1, Normal S2, No murmurs Abdomen: Bowel Sounds Present, Soft, Non Tender, Non-Distended, No Hepato-splenomegaly Extremities: No edema Skin: No rashes, No breakdown Musculoskeletal: No Tenderness to Palpation of Joints or Extremities Lymphatic: No Cervical, Supraclavicular, or Inguinal Adenopathy Neurological: Cranial nerves II-XII grossly intact, Neuro grossly intact Psych/Mental Status: Normal Affect, Appropriate Laboratory Results 01/19/18 22:16: POC Glucose 134 H 01/19/18 23:28: Hgb 11.4 L, Hct 35.0 L 01/20/18 06:10: WBC 9.5, RBC 4.09 L, Hgb 11.3 L, Hct 35.4 L, MCV 86.6, MCH 27.6, MCHC 31.9 L, RDW 13.6, RDW Differential 42.9, Plt Count 258, MPV 9.8, Immature Gran % (Auto) 0.100, Neut % (Auto) 57.7, Lymph % (Auto) 28.5, [place] % (Auto) 8.5, Eos % (Auto) 5.1 H, Baso % (Auto) 0.1, Absolute Neuts (auto) 5.5, Absolute Lymphs (auto) 2.69, Total Counted Not Reportable 01/20/18 06:32: POC Glucose 106 01/20/18 11:43: POC Glucose 192 H 01/20/18 16:48: POC Glucose 102 Current Medications Alprazolam (Xanax) 0.5 mg PO BID PRN PRN PRN Reason: ANXIETY Last Admin: 01/19/18 22:29 Dose: 0.5 mg Amiodarone HCl (Cordarone) 200 mg PO DAILY [facility] Last Admin: 01/20/18 09:34 Dose: 200 mg Amlodipine Besylate (Norvasc) 5 mg PO DAILY [facility] Last Admin: 01/20/18 09:34 Dose: 5 mg Dextrose (D50w Syringe) 0 gm IV X1 PRN; Protocol PRN Reason: Hypoglycemia Duloxetine HCl (Cymbalta) 30 mg PO DAILY [facility] Last Admin: 01/20/18 09:34 Dose: 30 mg Famotidine (Pepcid) 20 mg PO BID [facility] Last Admin: 01/20/18 09:34 Dose: 20 mg Glucagon () 1 mg IM .X1 PRN PRN Reason: Hypoglycemia Insulin Human Lispro (Humalog Kwikpen (Bkc)) 0 unit SC ACHS [facility] PRN Reason: Protocol Last Admin: 01/20/18 16:58 Dose: Not Given Metoprolol Succinate (Toprol Xl (Beta Dev)) 100 mg PO BID [facility] Last Admin: 01/20/18 07:33 Dose: 100 mg Morphine Sulfate () 1 mg IV Q3H PRN PRN PRN Reason: SEVERE PAIN (6-10/10) Multivitamins/Minerals (Multivitamin With Minerals) 1 tablet PO DAILY@0800 [facility] Last Admin: 01/20/18 09:34 Dose: 1 tablet Nutritional Formula (Lactose Free) (Ensure Clear) 120 ml PO 4X/DAY [facility] Last Admin: 01/20/18 13:39 Dose: 120 ml Ondansetron HCl (Zofran) 4 mg IV Q6H PRN PRN PRN Reason: NAUSEA Last Admin: 01/19/18 17:48 Dose: 4 mg Oxycodone HCl (Oxyir) 5 mg PO Q6H PRN PRN PRN Reason: PAIN Last Admin: 01/20/18 13:39 Dose: 5 mg Sodium Chloride () 5 - 30 ml IV UD PRN PRN Reason: SALINE FLUSH Last Admin: 01/19/18 17:48 Dose: 10 ml Medical Necessity - Tobacco Use Smoking Status: Former smoker Tobacco Use: Non-smoker Assessment/Plan All Active Problems GI bleeding (Acute) 72-year-old female with past medical history of diverticulosis, type 2 diabetes, hypertension comes in with rectal bleeding. 1. Rectal bleeding secondary to ischemic colitis of the descending colon, status post colonoscopy this morning, vitals are stable, Hb stable, will continue to monitor overnight for any further bleeds, if patient continues to be stable will possibly discharge in the morning. Will check orthostatic vitals every shift. 2. Type II DM, sugars are stable, on Accu-Cheks with insulin sliding scale coverage, resume home metformin from tomorrow 3. Hypertension, controlled, continue home regimen 4. Hyperlipidemia -intolerant of statins 5. Fibromyalgia/Anx/Dep, on home meds. 6. DVT ppx - SCDs Code Visit Inpatient E&M: 83315 Subs Hosp L2
[2018-01-20] MEDS: ALPRAZolam 0.5 MG Tablet PO (21:48)
[2018-01-20 21:51] LABS: Bedside Glucose 104 mg/dL (70-110)
[2018-01-21 02:28] VITALS: BP 154/70; PULSE 60; RESP 16; TEMP 36.6; O2SAT 98
[2018-01-21 05:17] VITALS: BP 132/71; BP 151/76; BP 158/71; PULSE 54; PULSE 55; PULSE 56
[2018-01-21 05:30] LABS: Bedside Glucose 95 mg/dL (70-110)
[2018-01-21 06:19] LABS: Absolute Lymphocyte Count 2.84 X10^3/ul (0.83-4.51); Absolute Neutrophil Count 4.8 X10^3/uL (2.0-7.7); Basophil# 0.02 X10^3/uL; Basophil% 0.2 % (0-1); Eosinophil# 0.47 X10^3/uL; Eosinophils% 5.3 % (0-5); Hematocrit 36.9 % (37-47); Hemoglobin 11.9 g/dl (12.0-15.0); Lymphocyte # 2.84 X10^3/ul (4.0); Mean Corp Hgb Conc 32.2 g/gl (32-36); Mean Corpuscular Volume 86.8 fL (81-99); Mean Platelet Vol. 9.9 fl (6.2-12.0); Monocyte# 0.75 X10^3/uL; Monocyte% 8.4 % (0-10); Neutrophil # 4.79 X10^3/uL (2.7-7.7); Platelet Count 283 K/mm3 (150-450); RBC Distribution Width CV 13.5 % (11.6-14.6); RBC Distribution Width SD 43.2 fl (35.1-43.9); Red Blood Count 4.25 M/mm3 (4.2-5.4); White Blood Count 8.9 K/mm3 (4.4-11.0)
[2018-01-21 06:24] LABS: POSITIVE COUNT NO; POSITIVE DIFFERENTIAL NO; POSITIVE MORPHOLOGY NO
[2018-01-21 06:31] LABS: Anion Gap 9 (5-15); BUN 8 mg/dL (7-18); BUN/Creat Ratio 11.9 RATIO (10-20); Calcium,Total 8.5 mg/dL (8.5-10.1); Chloride 109 mmol/L (98-107); Creatinine, Serum 0.67 mg/dL (0.55-1.02); EST Glomerular Filtration Rate 92 mL/min (>60); Est Glom Filt Rate - Afr Amer 111 mL/min (>60); Estimated Creatinine Clearance 44.56 ml/min; Glucose 105 mg/dL (74-106); Potassium 3.8 mmol/L (3.5-5.1); Sodium Level 144 mmol/L (136-145)
[2018-01-21] MEDS: oxyCODONE 5 MG Tablet PO (07:23)
[2018-01-21] MEDS: Multivitamins,Ther W-Minerals Tablet 1 TABLET PO (07:24)
[2018-01-21 08:00] VITALS: PULSE 62
--- NOTE | 2018-01-21 08:12 | DCINST_ITS ---
- Discharge Diagnoses Current Active Problems: Current Active and Chronic Problems GI bleeding (Acute) Diverticulosis (Chronic) HTN (hypertension) (Chronic) Diabetes (Chronic) HLD (hyperlipidemia) (Chronic) Anxiety (Chronic) Fibromyalgia (Chronic) Wrist fracture (Chronic) Depression (Chronic) Reason(s) for Visit for Discharge Instructions: Rectal bleeding, abdominal pain You will use the following diet at home:: Calorie/Carbohydrate Controlled ( specify 1200, 1400, etc), Cardiac Your food should be the consistency of: Regular Your liquids should be the consistency of: Regular/Thin Discharge Activity: Return to Normal Activity Weight Bearing Status: Weight bearing as tolerated Additional Instructions: Continue to take all your medications as prescribed. Keep yourself hydrated all the time. You should drink at least 1.5-2L of fluids every day. Discuss with your primary doctor about other options of treating anxiety/panic attacks. Be careful with the use of xanax as it can make you drowsy and increase your risk of falls. Look out for further bleeding per rectum and report to your doctor or go back. to the ED. Allergies/Adverse Reactions: Allergies Penicillins [PCN] Allergy (Verified 01/19/18 09:18) Anaphylaxis Medications to take at Discharge ALPRAZolam [Xanax] 1 mg PO BID PRN 01/06/18 Amiodarone HCl 200 mg PO DAILY 01/06/18 Amlodipine [Norvasc] 5 mg PO DAILY 01/06/18 Aspirin 81 mg PO DAILY 01/06/18 Metformin HCl [Glucophage] 500 mg PO BID 01/06/18 Metoprolol Succinate [Toprol Xl] 100 mg PO BID 01/06/18 Milnacipran HCl [Savella] 50 mg PO BID 01/06/18 Multivit-Min/FA/Vit K/Lycopene [[facility] Mens 50 Plus Advanced Tab] 1 each PO DAILY 01/19/18 Oxycodone [Oxyir] 5 - 10 mg PO Q6H PRN PRN 01/19/18 Orders to be completed after discharge: CBC W/Diff, Automated Time Frame: 3 Days, Location: Laboratory Primary Care Physician: Hudson Oglesby Jr., MD [Primary Care Provider] - Please follow up with your Primary Care Physician in: within 2 weeks Please Follow Up With: Richie Sims MD When: within 2 weeks When: Orthopedic team as already scheduled for your left Colle's fracture. Proposed Discharge Date: 01/21/18
--- NOTE | 2018-01-21 08:33 | PCM.DC.SUM ---
Discharge Date and Diagnosis - Problem List Patient Problems: Active and Suspected Problems GI bleeding (Acute) Date of Admission: 01/19/18 Date of Discharge: 01/21/18 - Primary Discharge Diagnosis Active and Suspected Problems GI bleeding (Acute) Acute ischemic colitis Acute blood loss anemia - Secondary Discharge Diagnosis Chronic Problems Diverticulosis (Chronic) HTN (hypertension) (Chronic) Diabetes (Chronic) HLD (hyperlipidemia) (Chronic) Anxiety (Chronic) Fibromyalgia (Chronic) Wrist fracture (Chronic) Depression (Chronic) Hospital Course and Treatment Imaging Results: Clinical Impression(s) from Imaging Studies Abdomen/Pelvis CT 01/19/18 13:34 IMPRESSION: Findings in keeping with a colitis of the left hemicolon. Ischemic colitis should be ruled out. Hypodensities scattered throughout the liver. These most likely represent hepatic cysts. Electronically Signed: Dung Rowe MD at 15:28 EDT Tel [phone], Service support , General surgery - Dr. Avila Operations: None Procedures: Colonoscopy Summary of Care Provided: 72-year-old female with past medical history of diverticulosis, hemorrhoids, type 2 DM, hypertension admitted with rectal bleeding and abdominal cramps. 1. Rectal bleeding secondary to ischemic colitis of the descending colon, status post colonoscopy 01/20/18. Her vitals remained stable during the hospital stay. Hemoglobin dropped from 13.1 to 11.4, but otherwise remained stable. No further bleeding seen during the hospital stay. Will add stool softeners to her medications. 2. Acute blood loss anemia secondary to rectal bleeding secondary to ischemic colitis, stable, repeat CBCD in 3 days 3. Type II DM, on metformin, blood sugars were stable during the hospital stay. 4. Hypertension, controlled, continued on home regimen 5. Hyperlipidemia -intolerant of statins 6. Fibromyalgia/Anxiety/Depression, on home meds. Discharge Diet: Low fat/ Low Cholesterol, 2000 mg Sodium Diet, Carb Control Diet Discharge Activity: Return to Normal Activity Weight Bearing Status: Weight bearing as tolerated Home Medications: Medications to take at Discharge ALPRAZolam [Xanax] 1 mg PO BID PRN 01/06/18 Amiodarone HCl 200 mg PO DAILY 01/06/18 Amlodipine [Norvasc] 5 mg PO DAILY 01/06/18 Aspirin 81 mg PO DAILY 01/06/18 Metformin HCl [Glucophage] 500 mg PO BID 01/06/18 Metoprolol Succinate [Toprol Xl] 100 mg PO BID 01/06/18 Milnacipran HCl [Savella] 50 mg PO BID 01/06/18 Multivit-Min/FA/Vit K/Lycopene [[facility] Mens 50 Plus Advanced Tab] 1 each PO DAILY 01/19/18 Oxycodone [Oxyir] 5 - 10 mg PO Q6H PRN PRN 01/19/18 Other Amb Orders: CBC W/Diff, Automated Time Frame: 3 Days, Location: Laboratory Primary Care Physician: Hudson Oglesby Jr., MD [Primary Care Provider] - Please follow up with your Primary Care Physician in: within 2 weeks Please Follow Up With: Richie Sims MD When: within 2 weeks When: Orthopedic team as already scheduled for your left Colle's fracture. Disposition: Home Minutes spent on discharge:: 40 Patient Condition:: Stable Medical Necessity - Tobacco Use Smoking Status: Former smoker Tobacco Use: Non-smoker Meaningful Use Info Meaningful Use Diagnoses (Choose all that apply): None applicable Code Visit Inpatient E&M: 20610 Disch Hosp
[2018-01-21 08:53] VITALS: BP 128/61; BP 129/66; BP 148/69; PULSE 53; PULSE 54; PULSE 55; RESP 18; TEMP 36.8; O2SAT 98
[2018-01-21 09:07] VITALS: PULSE 65
[2018-01-21] MEDS: Metoprolol(XL)Succ 100 MG Tablet PO (09:07)
[2018-01-21] MEDS: amLODIPine 5 MG Tablet PO (09:07)
[2018-01-21] MEDS: DULoxetine Hcl 30 MG Capsule PO (09:08)
[2018-01-21] MEDS: Famotidine 20 MG Tablet PO (09:08)
[2018-01-21 11:00] VITALS: BP 126/74; PULSE 62; RESP 16; TEMP 36.9; O2SAT 98
== END 2018-01-21 10:50 | disposition home or self-care (01) ==
LOC: ED 09:51 → MS3 10:53
PROVIDERS: Physician Assistant; Surgery; Admitting Provider Internal Medicine; Emergency Provider Emergency Medicine; Family Provider Internal Medicine; PCP Internal Medicine; Visit Provider Internal Medicine
PROC: 0DJD8ZZ Inspection of Lower Intestinal Tract, Via Natural or Artificial Opening Endoscopic (ICD-10-PCS; CPT 45378; principal; 2018-01-20 07:55)
DX: K55.039 Acute (reversible) ischemia of large intestine, extent unspecified (principal); K62.5 Hemorrhage of anus and rectum; D62 Acute posthemorrhagic anemia; I10 Essential (primary) hypertension; E78.5 Hyperlipidemia, unspecified; E11.9 Type 2 diabetes mellitus without complications; M79.7 Fibromyalgia; F41.9 Anxiety disorder, unspecified; F32.9 Major depressive disorder, single episode, unspecified; Z79.84 Long term (current) use of oral hypoglycemic drugs; Z79.899 Other long term (current) drug therapy; Z79.82 Long term (current) use of aspirin; Z87.891 Personal history of nicotine dependence; Z87.19 Personal history of other diseases of the digestive system; J44.9 Chronic obstructive pulmonary disease, unspecified; I48.91 Unspecified atrial fibrillation; K21.9 Gastro-esophageal reflux disease without esophagitis; G25.81 Restless legs syndrome
CPT/HCPCS: 45330; 45380; 36415; 74176; 80048; 82962; 85014; 85018; 85025; 85610; 85730; 86850; 86900; 88305; 93005; 96361; 96374; 97802; 99218; 99285; J7030; J7040; A4216; G0378; J2405

== ENCOUNTER → 2018-01-23 12:42 | Outpatient (CLI) | payer MEDICARE, SELFPAY ==
--- NOTE | 2018-01-23 12:42 | DT_ITS ---
This patient was seen during an EMR downtime January 22, 2018 - January 29, 2018. This patient may have a combination of paper and electronic documentation or all paper documentation. All documentation is viewable within the e-chart portion of [facility] for each patient visit.
--- NOTE | 2018-01-23 12:42 | DT_ITS ---
This patient was seen during an EMR downtime January 22, 2018 - January 29, 2018. This patient may have a combination of paper and electronic documentation or all paper documentation. All documentation is viewable within the e-chart portion of [facility] for each patient visit.
[2018-01-29 16:03] LABS: Hematocrit 38.3 % (37-47); Hemoglobin 12.3 g/dl (12.0-15.0); Mean Corp Hgb Conc 32.1 g/gl (32-36); White Blood Count 8.1 K/mm3 (4.4-11.0)
[2018-01-29 16:04] LABS: Absolute Lymphocyte Count 2.73 X10^3/ul (0.83-4.51); Absolute Neutrophil Count 4.3 X10^3/uL (2.0-7.7); Basophil# 0.01 X10^3/uL; Basophil% 0.1 % (0-1); Eosinophil# 0.44 X10^3/uL; Eosinophils% 5.5 % (0-5); Lymphocyte # 2.73 X10^3/ul (4.0); Lymphocyte % 33.8 % (19-41); Monocyte# 0.59 X10^3/uL; Monocyte% 7.3 % (0-10); Neutrophil # 4.28 X10^3/uL (2.7-7.7); Neutrophil % 53.1 % (47-70); POSITIVE COUNT NO; POSITIVE DIFFERENTIAL NO; POSITIVE MORPHOLOGY NO; Platelet Count 328 K/mm3 (150-450); RBC Distribution Width CV 13.2 % (11.6-14.6); RBC Distribution Width SD 42.2 fl (35.1-43.9)
== END ==
PROVIDERS: Family Provider Internal Medicine; PCP Internal Medicine; Visit Provider Internal Medicine
DX: D64.9 Anemia, unspecified (principal)
CPT/HCPCS: 36415; 85025

== ENCOUNTER → 2018-05-14 10:45 | Outpatient (CLI) | payer MEDICARE, SELFPAY ==
--- NOTE | 2018-05-14 10:47 | VDLE_ITS ---
Reason For Study: CVI RIGHT LEFT GSV is normal. GSV is normal. CFV is compressible, spontaneous, phasic, CFV is compressible, spontaneous, phasic, competent and demonstrates normal competent, and demonstrates normal augmentation. augmentation. FV is compressible, spontaneous, phasic, FV is compressible, spontaneous, phasic, competent and demonstrates normal competent and demonstrates normal augmentation. augmentation. POP V is compressible, spontaneous, phasic, POP V is compressible, spontaneous, phasic, competent and demonstrates normal competent and demonstrates normal augmentation. augmentation. T/P Trunk is compressible. T/P Trunk is compressible. PTV is compressible. PTV is compressible. RT PerV is compressible. LT PerV is compressible. SFJ is competent SFJ is INCOMPETENT with reflux greater GSV is competent above knee than .5 sec GSV is INCOMPETENT below knee with reflux GSV is INCOMPETENT with reflux greater greater than .5 sec and diameter of .2 x .2 than .5 sec and diameter of .31 x .331 cm cm SSV is competent. SSV is INCOMPETENT with reflux greater than .5 sec and diameter of .65 x .71 cm. Procedure Exam performed in department. Interpretation Summary 1. No DVT or SVT. 2. Righ gsv below knee reflux 3. Right LSV 7mm and reflux 4. Left GSV 3.1mm and reflux. Ordering Physician: Artie Barrios Referring Physician: Artie Barrios Performed By: Rosanne Campbell RVT
== END ==
PROVIDERS: Family Provider Internal Medicine; PCP Internal Medicine; Visit Provider Surgery Vascular Surgery
DX: M79.604 Pain in right leg (principal); M79.605 Pain in left leg; M79.89 Other specified soft tissue disorders
CPT/HCPCS: 93970

== ENCOUNTER → 2018-09-17 16:04 | Outpatient (CLI) | payer MEDICARE, SELFPAY ==
[2018-01-20 04:11] VITALS: BMI 33.9
[2018-09-17 17:34] LABS: Hematocrit 42.8 % (37-47); Hemoglobin 13.9 g/dl (12.0-15.0); Mean Corp Hgb Conc 32.5 g/gl (32-36); Mean Corpuscular Hgb 28.7 pg (27.0-32.0); Mean Corpuscular Volume 88.4 fL (81-99); Mean Platelet Vol. 11.6 fl (6.2-12.0); Platelet Count 289 K/mm3 (150-450); RBC Distribution Width CV 13.5 % (11.6-14.6); Red Blood Count 4.84 M/mm3 (4.2-5.4); White Blood Count 9.9 K/mm3 (4.4-11.0)
[2018-09-17 18:04] LABS: Scan Indicated on CBC? Y/N NO
== END ==
PROVIDERS: Visit Provider Obstetrics & Gynecology
DX: R10.9 Unspecified abdominal pain (principal); Z87.19 Personal history of other diseases of the digestive system
CPT/HCPCS: 36415; 85027; 87086; 87088

== ENCOUNTER → 2019-06-03 08:50 | Outpatient (CLI) | payer MEDICARE, SELFPAY ==
--- NOTE | 2019-06-03 09:00 | US_ITS ---
We are attempting to reach an attending provider to discuss findings. An addendum with communication details will be sent when the communication is complete. STUDY: ABDOMINAL ULTRASOUND - RIGHT UPPER QUADRANT REASON FOR VISIT: Female, 73 years old right upper quadrant pain. TECHNIQUE: Ultrasound evaluation of the right upper quadrant was performed with real-time and static neri-scale imaging. TECHNICAL QUALITY: Adequate. COMPARISON: CT of the abdomen and pelvis, January 19, 2018. FINDINGS: Liver: The liver measures 18.7 cm. There is normal echogenicity of the liver. The bile ducts are within normal limits. There is hepatic color flow. The direction of portal flow is hepatopetal. In the right liver there is a 2.0 x 2.3 x 2.3 cm cystic structure. Lower in the right liver there is a 2.1 x 2.1 x 1.4 cm septated cystic focus. Gallbladder: Normal distended gallbladder. The gallbladder wall measures 1.1 mm. There is a positive sonographic Warren's sign. There is no pericholecystic fluid. No echogenic focus is acoustic shadowing along the dependent wall could represent a adherent stone. Sludge is also noted. Common Bile Duct (C.B.D.): The common bile duct measures 4.4 mm. Pancreas: There is limited evaluation of the pancreas which appears echogenic. There is no demonstrated pancreatic mass or cyst. Right Kidney: Normal size of the right kidney. The right kidney measures 9.9 cm. Normal renal cortex. The right cortex measures 1.9 cm. There is no demonstrated renal mass or cyst. There is no right hydronephrosis. US/Abdomen Limited IMPRESSION: 1. Gallstones with mild wall thickening and positive Warren's sign. Findings are consistent with acute cholecystitis. 2. Stable hepatic cysts. Electronically Signed: Jordy Srinivasan DO at 13:35 EDT Tel [phone], Service support ,
== END ==
PROVIDERS: Family Provider Internal Medicine; PCP Internal Medicine; Referring Provider Internal Medicine; Visit Provider Internal Medicine
DX: R10.84 Generalized abdominal pain (principal); R19.4 Change in bowel habit; R11.0 Nausea
CPT/HCPCS: 76705

== ENCOUNTER → 2019-06-12 10:33 | Outpatient (CLI) | payer MEDICARE, SELFPAY ==
--- NOTE | 2019-06-12 10:36 | NM_ITS ---
CLINICAL: 73-year-old female with reported history of abdominal pain and nausea. RADIONUCLIDE HEPATOBILIARY SCINTIGRAPHY COMPARISON: Abdominal ultrasound report 06/03/2019 FINDINGS: Following the intravenous administration of 5.5 mCi of 99m Tc Mebrofenin, hepatobiliary images reveal: 1. Relatively prompt and homogeneous radiopharmaceutical concentration is noted by a normal sized liver. No parenchymal defects are identified. 2. Gallbladder activity is identified at 30 minutes post radiopharmaceutical administration. 3. Small intestinal tract is observed at 15 minutes following tracer injection. 4. Washout of the radiopharmaceutical by the hepatic parenchyma appears qualitatively normal. 5. There is scintigraphic evidence of pre-CCK duodenal gastric reflux. Cholecystokinin (0.02 ug/kg) was administered intravenously over a 30-minute period. The post CCK gallbladder ejection fraction calculated at 21 minutes following Cholecystokinin administration was noted to be 10.0 % (normal greater than 35%). There is scintigraphic evidence of continued post CCK duodenal gastric reflux. ME/Hepatobilliary Img w/Pharm Int IMPRESSION: 1. ABNORMAL 99m Tc Mebrofenin hepatobiliary imaging examination with Cholecystokinin. A. A gallbladder ejection fraction calculated to be less than 35% following the administration of Cholecystokinin is consistent with the presence of functional hepatobiliary disease (gallbladder and/or sphincter of Oddi dyskinesia) and/or organic hepatobiliary disease (chronic acalculous cholecystitis and/or cystic duct syndrome) in patients with intermediate to high pretest likelihoods of hepatobiliary illness. (Lurdes Ireland et al, Journal of Nuclear Medicine 32:1695, 1990). B. There is scintigraphic evidence of pre-post CCK duodenal-gastric reflux. (Wood et al, Nucl Med Jaclyn Sara Press pg. 35, 1980). Electronically Signed: Hudson Whiting DO at 21:50 EDT Tel , Service support ,
== END ==
PROVIDERS: Family Provider Internal Medicine; PCP Internal Medicine; Referring Provider Internal Medicine; Visit Provider Internal Medicine
DX: R10.84 Generalized abdominal pain (principal); R11.2 Nausea with vomiting, unspecified
CPT/HCPCS: 78227; A9537; J2805

== ENCOUNTER 2021-07-02 06:00 | Day surgery (SDC) | payer MEDICARE, SELFPAY ==
--- NOTE | 2021-07-01 | LES_PTH ---
PATIENT: SANDI RAMIREZ [place] [facility] [place][id number] AGE/SX: 75/F ROOM: RE07/02/[address]: Dr. Medhat Mercer MD : [id number] BED: DIS: 07/02/2021 SPEC #: [id number] RECD: 07/02/21 09:53 STATUS: DIPIKA REDwayne #: [id number] GRAY: 07/01/21 00:[address]: Medhat Mercer DEPT: SURGICAL PATHOLOGY RECD BY: Lewis Ricci ENTERED: 07/02/21 09:53 SP TYPE: Lesion OTHR DR: Dr. Hay Mai MD Tissues: Skin of nose, NOS Procedures: Surgery Specimen Level IV HEADER OPERATION: Excision or destruction intranasal lesion internal approach PRE-OP DIAGNOSIS: Excision or destruction intranasal lesion intranasal approach TISSUE SUBMITTED: Intranasal lesion MICROSCOPIC DIAGNOSIS Intranasal lesion, biopsy: Consistent with verrucoid keratosis. AM:camryn 07/05/2021 COMMENT Case has been reviewed in consultation with Dr. Louise who concurs with the above diagnosis. IDC:[email or web address] MICROSCOPIC DESCRIPTION Slides are reviewed. GROSS DESCRIPTION Received in fixative is one container labeled with the patient's name and designated intranasal lesion. The specimen consists of a piece of perez-pink soft tissue measuring 0.3 x 0.3 x 0.2 cm. The specimen is totally submitted in one cassette. / MARYBETH:camryn 07/02/21 TC:5 CPT: 73164
[2021-07-02] VITALS (7 sets, daily range): BP systolic 123–170; BP diastolic 63–93; PULSE 52–56; RESP 16; TEMP 35.9–36.2; O2SAT 94–100; BMI 35.6
[2021-07-02] MEDS: Lactated Ringers 1,000 ML 15 ML IV (06:31)
[2021-07-02] MEDS: Oxymetazoline 0.05% 1 SPRAY SPRAY.BTL 15 SPRAY (07:45)
[2021-07-02] MEDS: Lidocaine 1% /Epi 1:100 (50ml) 50 ML VIAL (07:45)
[2021-07-02] MEDS: Lidocaine 4% 50 ML Bottle (07:45)
--- NOTE | 2021-07-02 08:06 | PCM.OPRPT ---
Problems Associated Problem List Diagnoses (1) Other specified disorders of nose and nasal sinuses: Report of Operation Date of Procedure: 07/02/21 Pre-Operative Diagnosis: Left intranasal lesion Post-Operative Diagnosis: Same Surgery/Procedure Performed:: Excision of left intranasal lesion Description of Surgical Findings:: Lucero is a 75 y.o. 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 This has failed to heal despite multiple courses of oral and topical antibiotic. Given the non-healing nature and crusting and bleeding, excision was advised. The risks, alternatives, potential complications, and benefits were discussed at length and any questions answered to the patient and/or caregiver's satisfaction. Witnessed informed consent was obtained in the office, and the patient and/or caregiver was agreeable to proceed. Procedures went as follows: The patient identified the preoperative holding brought to the operating room where she was placed under monitored anesthesia care. The anterior nasal cavity was then topicalized with pledgets soaked in a 50-50 mixture of oxymetazoline 4% topical lidocaine and the left side. After allowing for vasoconstriction and injection of 1% lidocaine with 100,000 epinephrine for a total of 2 mL was then injected to numb the surgical area. Using a nasal speculum the nasal cavity was then dilated to allow for visualization of the nonhealing ulcer along the lateral aspect of the inner aspect of the nasal ala along the posterior edge of the lower lateral cartilage. This was then sharply incised with a 15 blade scalpel circumferentially and dissected deeply with an iris scissor producing a surgical specimen encompassing the entire nonhealing area. This was then sent for pathologic evaluation. The wound was then cauterized deeply with bipolar cautery for hemostasis. This was then closed with interrupted 5-0 Monocryl suture. The patient was then returned to anesthesia recovered and returned to postoperative holding without complication. Surgeon: Medhat Mercer Type of Anesthesia: Local MAC Anesthesiologist: Edouard Perkins Specimen's removed: left intranasal lesion Drains: none Estimated Blood Loss (mL): 2 mL Fluids Replaced: 400 mL Grafts/Implants Used: none Complications none Admit VTE Documentation VTE Present on Admission: No VTE Mechan Device Prophylaxis: SCD's VTE Pharm Prophylaxis ordered?: No
--- NOTE | 2021-07-02 08:24 | PCM.DC ---
Discharge Instructions Diet Discharge Diet: No restrictions Activity Discharge Activity: Return to Normal Activity Dressing / Incision Call your doctor if your incision/area has: Sudden Increased Bleeding Call your doctor if you observe: Fever of 101 or Higher and Uncontrolled pain Follow Up Care Please Follow Up With: Medhat Mercer MD When: 1 week Test Results: Test results from this visit will be discussed in further detail at your follow-up appointment, if applicable. Discharge Plan Admission Primary Reason for Your Visit: intranasal lesion Attending Provider: Medhat Mercer Primary Care Provider: Hay Mai Discharge Orders/Prescriptions Prescriptions: New acetaminophen 500 mg Tablet 500 mg PO Q4H PRN PRN (Reason: Pain Score 1-5/10) Qty: 0 RF: 0 Continued metformin 500 MG tablet 500 mg PO BID RF: 0 alprazolam [Xanax] 1 MG tablet 1 mg PO QHS RF: 0 amiodarone 200 MG tablet 100 mg PO DAILY RF: 0 metoprolol succinate [Toprol XL] 100 MG tablet extended release 24 hr 100 mg PO BID RF: 0 amlodipine 5 MG tablet 5 mg PO DAILY RF: 0 aspirin 81 MG tablet,chewable 81 mg PO DAILY RF: 0 Savella 50 MG tablet 50 mg PO BID RF: 0 sennosides-docusate sodium 1 EACH tablet 1 ea PO BID PRN (Reason: Constipation) Qty: 60 RF: 0 polyethylene glycol 3350 17 GM packet 17 gm PO DAILY PRN (Reason: Constipation) Qty: 30 RF: 0 mupirocin calcium 2 % Ointment 1 ea intranasal TID RF: 0 diclofenac sodium [Voltaren Arthritis Pain] 1 % Gel 1 ea TOPICAL PRN PRN (Reason: Pain) RF: 0 Eliquis 5 mg Tablet 5 mg PO BID RF: 0 omeprazole 20 mg Capsule,Delayed Release(Dr/Ec) 20 mg PO DAILY PRN (Reason: INDIGESTION) RF: 0 Referrals / Follow Up: Hay Mai MD [Primary Care Provider] - Disposition Disposition (needs filled in before D/C Order can be placed): Home, Self Care
--- NOTE | 2021-07-02 09:16 | SUR.PHASEII ---
Patient's upset after not speaking with Dr. Mooney after surgery. Dr. Mooney educated patient in PACU however did not see in waiting room. This nurse told the what Dr. Mooney said in the recovery room, however , Nayan still wanted to speak with Dr. Mooney. This nurse gave Lynne, OR nurse phone number for for Dr. mooney to call after current OR case.
[2021-07-02 09:21] LABS: Bedside Glucose 112 mg/dL (70-110)
== END 2021-07-02 09:27 | disposition home or self-care (01) ==
LOC: SDC 06:01 → AC 06:02
PROVIDERS: PCP Internal Medicine; Referring Provider Otolaryngology; Visit Provider Otolaryngology
PROC: (CPT 30117; principal; 2021-07-02 07:00)
DX: J34.89 Other specified disorders of nose and nasal sinuses (principal); I10 Essential (primary) hypertension; K21.9 Gastro-esophageal reflux disease without esophagitis; M19.90 Unspecified osteoarthritis, unspecified site; E11.9 Type 2 diabetes mellitus without complications; H91.90 Unspecified hearing loss, unspecified ear; E78.5 Hyperlipidemia, unspecified; G47.30 Sleep apnea, unspecified; F41.9 Anxiety disorder, unspecified; F32.A Depression, unspecified; G25.81 Restless legs syndrome; G43.909 Migraine, unspecified, not intractable, without status migrainosus; Z87.19 Personal history of other diseases of the digestive system; Z79.899 Other long term (current) drug therapy; Z79.82 Long term (current) use of aspirin; Z79.84 Long term (current) use of oral hypoglycemic drugs
CPT/HCPCS: 00160; 30117; 82962; 88305; J7120; J2405

== ENCOUNTER 2025-01-12 13:27 | Emergency (ER) | payer MEDICARE, SELFPAY ==
[2025-01-12 13:28] VITALS: BP 132/77; PULSE 78; RESP 16; TEMP 36.4; O2SAT 95; BMI 39.9
--- NOTE | 2025-01-12 14:10 | EKG12_ITS ---
Test Reason : SOB Blood Pressure : */* mmHG Vent. Rate : 72 BPM Atrial Rate : * BPM P-R Int : * ms QRS Dur : 90 ms QT Int : 406 ms P-R-T Axes : * 5 179 degrees QTcB Int : 444 ms Atrial fibrillation Nonspecific T wave abnormality Abnormal ECG Confirmed by Zechariah Aguayo ([id number]), multimedia editor JANN BENSON ([id number]) on 01/20/2025 1:05:19 PM Referred By: DEDE/HEMANT Confirmed By: Zechariah Aguayo
--- NOTE | 2025-01-12 14:14 | EX.ED.DYSGE1 ---
HPI <MARYCRUZ Freeman - Last Filed: 01/12/25 18:34> History of Present Illness Chief Complaint: Syncope Narrative Narrative: Patient presenting due to a syncopal episode that occurred this afternoon. She and her were on their way to a graduation green party, she began to have cramping in her abdomen and felt like she had to have a bowel movement, he pulled over at a gas station and while she was having a bowel movement she continued to have abdominal cramping and became sweaty and lightheaded. She then tried to get back to the car quickly because she felt like she could pass out. She was unable to make it back to the car in time and did pass out in the parking lot of the gas station. This was witnessed by her , she did not hit her head. She denies any chest pain or shortness of breath prior to passing out. She reports that her stomach cramping has improved, she reports that she has had similar cramping off and on for years. She denies recent illness, fevers, chills, nausea, and vomiting. She has a PMH of A-fib on Eliquis, HTN, HLD, and T2DM. PFSH <MARYCRUZ Freeman - Last Filed: 01/12/25 18:34> PFS Medical History Loss of hearing Wears glasses Cancer Depression Anxiety Abrasion Diabetes Arthritis Bladder disease Fatty liver Easy bruising Restless legs Injury of back Migraine headache Injury of head and neck Blackout Dietary restriction History of ulceration History of IBS History of diverticulitis Gastric reflux Former smoker Shortness of breath on exertion Leg cramps History of pain when walking History of edema History of echocardiogram History of stress test Cardiology follow-up encounter Hypertension History of CHF (congestive heart failure) Hx of supraventricular tachycardia Hx of fracture of wrist Home Medications ?Medication ?Instructions ?Recorded ?Last Taken ?Type alprazolam 1 mg tablet (Xanax) 1 mg PO QHS 01/06/18 Unknown History amiodarone 200 mg tablet 100 mg PO DAILY heart 01/06/18 01/18/18 History amlodipine 5 mg tablet 5 mg PO DAILY blood pressure 01/06/18 01/18/18 History aspirin 81 mg chewable tablet 81 mg PO DAILY 01/06/18 Unknown History metformin 500 mg tablet 500 mg PO BID diabetes 01/06/18 01/18/18 History metoprolol succinate 100 mg 100 mg PO BID blood pressure, heart 01/06/18 01/18/18 History tablet,extended release 24 hr (Toprol XL) milnacipran 50 mg tablet (Savella) 50 mg PO BID fibromyalgia 01/06/18 01/18/18 History polyethylene glycol 3350 17 gram 17 gm PO DAILY PRN Constipation 01/21/18 Unknown Rx oral powder packet #30 packets sennosides 8.6 mg-docusate sodium 1 ea PO BID PRN Constipation #60 01/21/18 Unknown Rx 50 mg tablet tabs apixaban 5 mg tablet (Eliquis) 5 mg PO BID 06/28/21 Unknown History diclofenac sodium 1 % topical gel 1 ea topical PRN PRN Pain 06/28/21 Unknown History (Voltaren Arthritis Pain) mupirocin calcium 2 % nasal 1 ea intranasal TID 06/28/21 Unknown History ointment omeprazole 20 mg capsule,delayed 20 mg PO DAILY PRN INDIGESTION 06/28/21 Unknown History release acetaminophen 500 mg tablet 500 mg PO Q4H PRN PRN Pain Score 07/02/21 Unknown Rx 1-5/10 #0 tabs Allergy/AdvReac Type Severity Reaction Status Date / Time atenolol Allergy TACHYCARDIA Verified 01/12/25 13:33 nitrofurantoin (From Allergy Rash Verified 01/12/25 13:33 Macrobid) Penicillins (PCN) Allergy Anaphylaxis Verified 01/12/25 13:33 adhesive tape AdvReac Other Verified 01/12/25 13:33 contact metal agent AdvReac Other Verified 01/12/25 13:33 latex AdvReac Itching Verified 01/12/25 13:33 oregano AdvReac HEARTBURN Verified 01/12/25 13:33 shellfish derived AdvReac Vomiting Verified 01/12/25 13:33 Family History no significant family his Surgical History Hx of repair of right rotator cuff History of cardiac catheterization History of radiofrequency ablation (RFA) for complex left atrial arrhythmia Hx of umbilical hernia repair Hx of inguinal hernia repair Hx laparoscopic cholecystectomy Hx of breast biopsy Hx of exploratory laparotomy Hx of oophorectomy History of hysteroscopy Hx of colonoscopy Hx of total hip arthroplasty Social History Smoking Status: Former smoker ROS <MARYCRUZ Freeman - Last Filed: 01/12/25 18:34> ROS ED Constitutional Constitutional ED: Denies chills or fever(s) Cardiovascular Cardiovascular: Denies chest pain Respiratory/Chest Respiratory/Chest: Denies cough or dyspnea Gastrointestinal Gastrointestinal: Denies diarrhea, nausea or vomiting Genitourinary Genitourinary ED: Denies dysuria, hematuria or urinary urgency Musculoskeletal Musculoskeletal: Denies arthralgias or myalgias Integumentary Denies Abrasions Neurologic Neurologic: Denies weakness EXAM <MARYCRUZ Freeman - Last Filed: 01/12/25 18:34> Physical Exam Const Vital Signs: 01/12/25 13:28 01/12/25 14:51 01/12/25 14:52 Temperature 97.6 F L Temperature Source Oral Pulse Rate 78 Respiratory Rate 16 Respiratory Effort Normal Non-Labored Respiratory Pattern Normal Blood Pressure 132/77 H Blood Pressure Mean 95 Pulse Ox 95 Oxygen Delivery Method Room Air Room Air 01/12/25 15:27 01/12/25 16:31 Temperature 97.6 F L Temperature Source Pulse Rate 72 75 Respiratory Rate 16 Respiratory Effort Respiratory Pattern Blood Pressure 120/71 124/78 H Blood Pressure Mean 87 93 Pulse Ox 97 97 Oxygen Delivery Method Room Air Positive well nourished, well developed and no apparent distress General Appearance ED: well developed HEENT Reports normocephalic, head/scalp atraumatic and dry mucous membranes Mouth ED: Yes dry mucous membranes Mouth: dry mucous membranes Eyes PERRL and EOMs intact bilaterally Neck full ROM and supple Chest Wall inspection of chest normal Resp normal respiratory effort and clear to auscultation bilaterally Cardio regular rate and regular rhythm GI soft to palpation, non-tender, non-distended and no masses Back/Spine normal ROM and normal to inspection Extremity normal to inspection and full ROM Neuro oriented x3, CN's II-XII intact bilaterally, moves all extremities, no focal motor deficits and no sensory deficits noted Sensorium / Orientation: awake and alert Psych mental status grossly normal and thought process normal Skin no rashes or lesions noted and no wounds <Dr. Nisha Dacosta DO - Last Filed: 01/15/25 15:24> Physical Exam Const Vital Signs: 01/12/25 13:28 01/12/25 14:51 01/12/25 14:52 Temperature 97.6 F L Temperature Source Oral Pulse Rate 78 Respiratory Rate 16 Respiratory Effort Normal Non-Labored Respiratory Pattern Normal Blood Pressure 132/77 H Blood Pressure Mean 95 Pulse Ox 95 Oxygen Delivery Method Room Air Room Air 01/12/25 15:27 01/12/25 16:31 Temperature 97.6 F L Temperature Source Pulse Rate 72 75 Respiratory Rate 16 Respiratory Effort Respiratory Pattern Blood Pressure 120/71 124/78 H Blood Pressure Mean 87 93 Pulse Ox 97 97 Oxygen Delivery Method Room Air MDM <MARYCRUZ Freeman - Last Filed: 01/12/25 18:34> [facility] Narrative Medical decision making narrative: Patient presenting due to syncopal episode that occurred this afternoon. She has a history of stomach cramping and began to have cramping while in the car, she felt like she needed to have a bowel movement and her pulled over at the gas station. She was on the toilet trying to have a bowel movement when she became sweaty and lightheaded and her legs became weak. She got up and tried to quickly get back to the car but ultimately passed out. reports that she did not hit her head. I suspect patient likely had a vagal reaction. Cardiac labs will be obtained. She does appear dry and will be given IV fluids. On BMP her creatinine is 1.34, I was able to review previous labs on clinisync and this appears consistent with previous creatinines over the past year. She reports that her home health nurse recently made her aware of her abnormal kidney labs and she is going to be following up with her PCP on this. On reexamination she is doing well, she ambulated without difficulty. She reported that she went to the bathroom and she noticed what looked like dark blood coming from her rectum when wiping. I did perform a ADEEL, no external signs of bleeding, brown stool noted on ADEEL. She has had no further symptoms here. At this point I feel patient is stable to be discharged home, recommended she follow-up with her PCP. Return instructions discussed. Lab Data Attestation: I reviewed the patient's lab results. Labs: Laboratory Results - last 24 hr 01/12/25 01/12/25 13:30 15:30 WBC 9.3 RBC 5.46 H Hgb 15.4 H Hct 47.5 H MCV 87.0 MCH 28.2 MCHC 32.4 RDW Std Deviation 41.2 RDW Coeff of Will 13.2 Plt Count 207 MPV 13.6 H Immature Gran % (Auto) 0.300 Neut % (Auto) 46.8 L Lymph % (Auto) 41.7 H Yell % (Auto) 8.1 Eos % (Auto) 2.3 Baso % (Auto) 0.8 Absolute Neuts (auto) 4.4 Absolute Lymphs (auto) 3.88 Nucleated RBC % 0 Sodium 135 Potassium 3.9 Chloride 99 Carbon Dioxide 20.9 L Anion Gap 15 BUN 21 H Creatinine 1.34 H Estim Creat Clear Calc 40.96 L Est GFR (MDRD) Non-Af 41 L BUN/Creatinine Ratio 16.0 Glucose 120 H Calcium 9.5 Troponin T High Sens 14 Troponin T Hi Sens 2 Hr 12 Radiography X-Ray: Read by ED Physician and Read by Radiologist Diagnostic Testing: Clinical Impression(s) from Imaging Studies Chest X-Ray 01/12/25 14:15 IMPRESSION: No focal consolidations. Reading Location: [facility] EKG Initial EKG: Comments: 72 bpm, atrial fibrillation, no ST elevation, interpreted by attending ED physician <Dr. Nisha Dacosta, DO - Last Filed: 01/15/25 15:24> [facility] Lab Data Labs: Laboratory Results - last 24 hr 01/12/25 01/12/25 13:30 15:30 WBC 9.3 RBC 5.46 H Hgb 15.4 H Hct 47.5 H MCV 87.0 MCH 28.2 MCHC 32.4 RDW Std Deviation 41.2 RDW Coeff of Will 13.2 Plt Count 207 MPV 13.6 H Immature Gran % (Auto) 0.300 Neut % (Auto) 46.8 L Lymph % (Auto) 41.7 H Yell % (Auto) 8.1 Eos % (Auto) 2.3 Baso % (Auto) 0.8 Absolute Neuts (auto) 4.4 Absolute Lymphs (auto) 3.88 Nucleated RBC % 0 Sodium 135 Potassium 3.9 Chloride 99 Carbon Dioxide 20.9 L Anion Gap 15 BUN 21 H Creatinine 1.34 H Estim Creat Clear Calc 40.96 L Est GFR (MDRD) Non-Af 41 L BUN/Creatinine Ratio 16.0 Glucose 120 H Calcium 9.5 Troponin T High Sens 14 Troponin T Hi Sens 2 Hr 12 Radiography Diagnostic Testing: Clinical Impression(s) from Imaging Studies Chest X-Ray 01/12/25 14:15 IMPRESSION: No focal consolidations. Reading Location: [id number] Treatment and Re-Evaluation :: I have personally performed a face to face assessment of the patient and have reviewed the HEMALATHA Note. I performed a substantive portion of the visit including all aspects of the following. My romero findings include: History is Patient is a 79-year-old female presenting after syncopal episode. They were driving in the car when she fell she did have a bowel movement. They stopped at a gas station. She developed cramping abdominal pain and this sweaty. She was leaving the bathroom as she not had a bowel movement and then passed out in the gas station. Her saw her walking and saw her lower self to the ground. She did not injure herself when she fell as her did observe it. Patient notes that she has had similar cramping episodes in the past. She states she is otherwise been in her normal state of health. She denies associated chest pain, melena, shortness of breath or leg swelling. She is currently anticoagulated on Eliquis. Low suspicion for pulmonary emboli given this. Differential includes hypovolemia, vasovagal episode, intra-abdominal infection, SVETLANA, electrolyte abnormality, ACS and arrhythmia. Workup obtained which shows CBC that is questionably mildly hemoconcentrated as her hemoglobin is up to 15.4. Compared to her CBCs 5+ years ago her hemoglobin at that time ranged between 12 and 13. No leukocytosis or left shift. Lower suspicion for systemic infection. Bicarb mildly low at 20.9. Creatinine 1.34. Our most recent creatinine in 2018 was 0.67 however patient does tell me that she had recent outpatient labs which showed mild elevation of her creatinine so this sounds at this is actually closer to her baseline. She has normal anion gap. Normal electrolytes otherwise. Patient is not having any urinary symptoms low suspicion for UTI. She was given IV fluids in the emergency room. High since he troponin normal at 14 and then on repeat 12. Low suspicion for ACS. Chest x-ray reviewed by myself as well as radiology does not show any acute process. Clinically patient appears mildly dehydrated with dry mucosal membranes however she otherwise has a relatively benign physical exam. She is in atrial fibrillation however is rate controlled. Given that she is appropriately anticoagulated low suspicion for stroke. She is not any focal neurologic deficits. Is given IV fluids. On repeat exam she states she is feeling better. Workup largely reassuring. Given return precautions. Suspect she likely had a vasovagal episode associated with some mild dehydration and her abdominal cramping. Other additions or changes: [None] Discharge Plan Triage Chief Complaint: Syncope Other Complaint: Abd Pain ED Midlevel Provider: Brenda Marcos ED Provider: Nisha Dacosta Dx/Rx/DC Orders Clinical Impression: Syncope Instructions: ED Fainting, Vagal Reaction Prescriptions: No Action metformin 500 MG tablet 500 mg PO BID Patient Comments: alprazolam [Xanax] 1 MG tablet 1 mg PO QHS amiodarone 200 MG tablet 100 mg PO DAILY Patient Comments: metoprolol succinate [Toprol XL] 100 MG tablet extended release 24 hr 100 mg PO BID Patient Comments: amlodipine 5 MG tablet 5 mg PO DAILY Patient Comments: aspirin 81 MG tablet,chewable 81 mg PO DAILY Savella 50 MG tablet 50 mg PO BID Patient Comments: sennosides-docusate sodium 1 EACH tablet 1 ea PO BID PRN (Reason: Constipation) Qty: 60 0RF polyethylene glycol 3350 17 GM packet 17 gm PO DAILY PRN (Reason: Constipation) Qty: 30 0RF mupirocin calcium 2 % Ointment 1 ea intranasal TID diclofenac sodium [Voltaren Arthritis Pain] 1 % Gel 1 ea TOPICAL PRN PRN (Reason: Pain) Eliquis 5 mg Tablet 5 mg PO BID omeprazole 20 mg Capsule,Delayed Release(Dr/Ec) 20 mg PO DAILY PRN (Reason: INDIGESTION) acetaminophen 500 mg Tablet 500 mg PO Q4H PRN PRN (Reason: Pain Score 1-5/10) Qty: 0 0RF Primary Care Provider: Hay Mai Referrals: Hay Mai MD [Primary Care Provider] - 5-7 Days Activity Restrictions/Additional Instructions: Follow-up with your PCP and return for any worsening symptoms or other concerns. Print Language: Azerbaijani Disposition Disposition: Home, Self Care Discharge Date/Time: 01/12/25 16:33
[2025-01-12] MEDS: 0.9% Normal Saline (500mL Bag) 500 ML 999 ML IV ×2 (14:15→15:49)
--- NOTE | 2025-01-12 14:15 | RAD_ITS ---
PROCEDURE: CHEST PA AND LATERAL 01/12/2025 REASON FOR EXAM: SYNCOPE TECHNIQUE: Frontal and lateral views of the chest. COMPARISON: None FINDINGS: No focal consolidations. No pleural effusion or pneumothorax. Cardiac silhouette is borderline enlarged. No acute fractures. RAD/Chest PA and Lateral IMPRESSION: No focal consolidations. Reading Location: [id number]
[2025-01-12 14:32] LABS: Absolute Lymphocyte Count 3.88 X10^3/uL (0.83-4.51); Absolute Neutrophil Count 4.4 X10^3/uL (2.0-7.7); Basophil# 0.07 X10^3/uL; Basophil% 0.8 % (0-1); Eosinophil# 0.21 X10^3/uL; Eosinophils% 2.3 % (0-5); Hematocrit 47.5 % (37-47); Hemoglobin 15.4 g/dL (12.0-15.0); Lymphocyte # 3.88 X10^3/ul (0.83-4.51); Lymphocyte % 41.7 % (19-41); Mean Corp Hgb Conc 32.4 g/dL (32-36); Mean Corpuscular Hgb 28.2 pg (27.0-32.0); Mean Platelet Vol. 13.6 fl (6.2-12.0); Monocyte# 0.75 X10^3/uL; Monocyte% 8.1 % (0-10); NRBC Flagged by Analyzer 0 % (0-5); Neutrophil # 4.37 X10^3/uL (2.7-7.7); Neutrophil % 46.8 % (47-70); Platelet Count 207 K/mm3 (150-450); RBC Distribution Width CV 13.2 % (11.6-14.6); RBC Distribution Width SD 41.2 fl (35.1-43.9); Red Blood Count 5.46 M/mm3 (4.2-5.4); White Blood Count 9.3 K/mm3 (4.4-11.0)
[2025-01-12 14:46] LABS: Troponin T High Sensitivity 14 ng/L (<=14)
[2025-01-12 15:04] LABS: Anion Gap 15 (5-15); BUN 21 mg/dL (4-19); Calcium,Total 9.5 mg/dL (7.6-11.0); Carbon Dioxide 20.9 mmol/L (21.0-32.0); Chloride 99 mmol/L (98-108); Creatinine, Serum 1.34 mg/dL (0.70-1.20); EST Glomerular Filtration Rate 41 (>60); Estimated Creatinine Clearance 40.96 ml/min (50-250); Glucose 120 mg/dL (70-99); Potassium 3.9 mmol/L (3.3-5.1); Sodium Level 135 mmol/L (133-145)
[2025-01-12 15:27] VITALS: BP 120/71; PULSE 72; O2SAT 97
--- NOTE | 2025-01-12 15:40 | CM.ED ---
Social Work Date of referral: 01/12/25 Reason for referral: Advanced Care Directives not on file Referred by: Social Work identification Patient provided consent for social work visit. Sill Worker requested a copy of her advanced care directives which patient stated she will try to get in however patient stated she normally goes to the hospital in [place]. adoption social worker told her it wouldn't be a bad idea to have them in her medical records here as well. No other needs/concerns noted at this time. Daisy Zuluaga, CLASSIFICATION OFFICER, SAND WORKER
[2025-01-12 16:02] LABS: Troponin T High Sens 2 HR 12 ng/L (<=14)
[2025-01-12 16:31] VITALS: BP 124/78; PULSE 75; RESP 16; TEMP 36.4; O2SAT 97
== END 2025-01-12 16:33 | disposition home or self-care (01) ==
PROVIDERS: Physician Assistant; Emergency Provider Emergency Medicine; PCP Internal Medicine; Visit Provider Emergency Medicine
DX: R55 Syncope and collapse (principal); I11.0 Hypertensive heart disease with heart failure; I50.9 Heart failure, unspecified; I48.91 Unspecified atrial fibrillation; E11.9 Type 2 diabetes mellitus without complications; Z87.891 Personal history of nicotine dependence; R10.9 Unspecified abdominal pain; E78.5 Hyperlipidemia, unspecified; Z79.01 Long term (current) use of anticoagulants; F41.9 Anxiety disorder, unspecified; Z79.899 Other long term (current) drug therapy; Z79.82 Long term (current) use of aspirin; Z79.84 Long term (current) use of oral hypoglycemic drugs; K21.9 Gastro-esophageal reflux disease without esophagitis; Z90.49 Acquired absence of other specified parts of digestive tract; Z96.649 Presence of unspecified artificial hip joint
CPT/HCPCS: 71046; 80048; 84484; 85025; 93005; 96360; 96361; 99285; A4216